=== PATIENT | female | born 1995 | race Caucasian/White ===

== ENCOUNTER 2020-04-21 12:13 | Outpatient (REF) | payer BC, SELFPAY | END 2020-04-21 12:14 | disposition home or self-care (01) | LOC: HO.LAB 12:13 | PROVIDERS: Visit Provider Internal Medicine | DX: Z20.828 Contact with and (suspected) exposure to other viral communicable diseases (principal) | CPT/HCPCS: 87635 ==

== ENCOUNTER 2020-06-18 13:55 | Outpatient (REF) | payer BC, SELFPAY | END 2020-06-18 13:56 | disposition home or self-care (01) | LOC: HO.LAB 13:55 | PROVIDERS: Visit Provider Internal Medicine | DX: Z20.828 Contact with and (suspected) exposure to other viral communicable diseases (principal) | CPT/HCPCS: C9803; U0003 ==

== ENCOUNTER 2020-07-06 10:06 | Outpatient (REF) | payer BC, SELFPAY | END 2020-07-06 10:07 | disposition home or self-care (01) | LOC: HO.LAB 10:06 | PROVIDERS: Visit Provider Internal Medicine | DX: Z20.828 Contact with and (suspected) exposure to other viral communicable diseases (principal) | CPT/HCPCS: C9803; U0003 ==

== ENCOUNTER 2020-08-24 11:10 | Outpatient (REF) | payer BC, SELFPAY | END 2020-08-24 11:11 | disposition home or self-care (01) | LOC: HO.LAB 11:10 | PROVIDERS: Visit Provider Internal Medicine | DX: Z20.822 Contact with and (suspected) exposure to COVID-19 (principal) | CPT/HCPCS: 36415; C9803; U0003; U0005 ==

== ENCOUNTER 2020-09-08 12:16 | Outpatient (REF) | payer BC, SELFPAY | END 2020-09-08 12:17 | disposition home or self-care (01) | LOC: HO.LAB 12:16 | PROVIDERS: Visit Provider Internal Medicine | DX: Z20.822 Contact with and (suspected) exposure to COVID-19 (principal) | CPT/HCPCS: 36415; C9803; U0003; U0005 ==

== ENCOUNTER 2021-04-16 00:18 | Outpatient (REF) | payer BC, SELFPAY ==
[2021-04-16 00:44] LABS: COVID-19 Test Negative (Negative)
== END 2021-04-16 00:19 | disposition home or self-care (01) ==
LOC: HO.LAB 00:18
PROVIDERS: Visit Provider Internal Medicine
DX: Z20.822 Contact with and (suspected) exposure to COVID-19 (principal)
CPT/HCPCS: 36415; 87635

== ENCOUNTER 2021-05-29 06:59 | Outpatient (REF) | payer BC, SELFPAY ==
[2021-05-29 07:49] LABS: COVID-19 Test Negative (Negative)
== END 2021-05-29 07:00 | disposition home or self-care (01) ==
LOC: HO.LAB 06:59
PROVIDERS: Visit Provider Internal Medicine
DX: Z20.822 Contact with and (suspected) exposure to COVID-19 (principal)
CPT/HCPCS: 36415; 87635

== ENCOUNTER 2021-06-28 10:29 | Outpatient (REF) | payer BC, SELFPAY ==
[2021-06-28 11:02] LABS: COVID-19 Test Negative (Negative)
== END 2021-06-28 10:30 | disposition home or self-care (01) ==
LOC: HO.LAB 10:29
PROVIDERS: Visit Provider Internal Medicine
DX: Z20.822 Contact with and (suspected) exposure to COVID-19 (principal)
CPT/HCPCS: 36415; 87635

== ENCOUNTER 2021-07-07 08:46 | Outpatient (REF) | payer BC, SELFPAY ==
[2021-07-07 09:37] LABS: COVID-19 Test Negative (Negative); IDNOW Serial# 9DD0AD1C
== END 2021-07-07 08:47 | disposition home or self-care (01) ==
LOC: HO.LAB 08:46
PROVIDERS: Visit Provider Internal Medicine
DX: Z20.822 Contact with and (suspected) exposure to COVID-19 (principal)
CPT/HCPCS: 36415; 87635

== ENCOUNTER 2021-07-12 14:10 | Outpatient (REF) | payer BC, SELFPAY ==
[2021-07-12 14:51] LABS: IDNOW Serial# 55D5AD1C
[2021-07-12 14:52] LABS: COVID-19 Test Negative (Negative)
== END 2021-07-12 14:11 | disposition home or self-care (01) ==
LOC: HO.LAB 14:10
PROVIDERS: Visit Provider Internal Medicine
DX: Z20.822 Contact with and (suspected) exposure to COVID-19 (principal)
CPT/HCPCS: 36415; 87635

== ENCOUNTER 2021-07-16 17:49 | Outpatient (REF) | payer BC, SELFPAY ==
[2021-07-16 18:35] LABS: COVID-19 Test Negative (Negative)
== END 2021-07-16 17:50 | disposition home or self-care (01) ==
LOC: HO.LAB 17:49
PROVIDERS: Visit Provider Internal Medicine
DX: Z20.822 Contact with and (suspected) exposure to COVID-19 (principal)
CPT/HCPCS: 36415; 87635

== ENCOUNTER 2021-07-22 08:13 | Outpatient (REF) | payer BC, SELFPAY ==
[2021-07-22 08:48] LABS: COVID-19 Test Negative (Negative); IDNOW Serial# 9DD0AD1C
== END 2021-07-22 08:14 | disposition home or self-care (01) ==
LOC: HO.LAB 08:13
PROVIDERS: Visit Provider Internal Medicine
DX: Z20.822 Contact with and (suspected) exposure to COVID-19 (principal)
CPT/HCPCS: 87635

== ENCOUNTER 2021-07-24 09:20 | Outpatient (REF) | payer BC, SELFPAY ==
[2021-07-24 11:43] LABS: COVID-19 Test Negative (Negative); IDNOW Serial# 9DD0AD1C
== END 2021-07-24 09:21 | disposition home or self-care (01) ==
LOC: HO.LAB 09:20
PROVIDERS: Visit Provider Internal Medicine
DX: Z20.822 Contact with and (suspected) exposure to COVID-19 (principal)
CPT/HCPCS: 87635

== ENCOUNTER 2021-10-05 09:52 | Outpatient (REF) | payer BC, SELFPAY ==
[2021-10-05 10:42] LABS: COVID-19 Test Negative (Negative)
== END 2021-10-05 09:53 | disposition home or self-care (01) ==
LOC: HO.LAB 09:52
PROVIDERS: Visit Provider Internal Medicine
DX: Z20.822 Contact with and (suspected) exposure to COVID-19 (principal)
CPT/HCPCS: 87635

== ENCOUNTER 2021-11-10 20:42 | Outpatient (REF) | payer BC, SELFPAY ==
[2021-11-10 21:20] LABS: COVID-19 Test Positive (Negative)
== END 2021-11-10 20:43 | disposition home or self-care (01) ==
LOC: HO.LAB 20:42
PROVIDERS: Visit Provider Internal Medicine
DX: Z20.822 Contact with and (suspected) exposure to COVID-19 (principal)
CPT/HCPCS: 87635

== ENCOUNTER 2021-12-06 15:00 | Outpatient (RCR) | payer BC, SELFPAY | END 2022-01-14 10:25 | disposition home or self-care (01) | LOC: HO.PT 15:00 | PROVIDERS: Visit Provider Orthopaedic Surgery | DX: M25.512 Pain in left shoulder (principal); M75.02 Adhesive capsulitis of left shoulder | CPT/HCPCS: 97110; 97112; 97140; 97161; 97530 ==

== ENCOUNTER 2022-03-17 15:00 | Outpatient (RCR) | payer OTHER, SELFPAY ==
--- NOTE | 2022-02-10 15:09 | MHC.PT.EP ---
[facility] [place] Office [place] Office [place] Office [address] Jaquelin Delacruz [address] [phone] F: [phone] F: [phone] F: [phone] F: [phone] Physical Therapy Plan of Care Date of Evaluation: Date of Surgery: October 2021 Diagnosis: left shoulder SAD sx w/ JR () Assessment: pt is a 26 y/o female presenting to physical therapy w/ referring diagnosis of s/p L SAD in October 2021. Impairments include pain, decreased range of motion, decreased strength, impaired functional mobility, impaired postural awareness, and gait deviations. pt is a good candidate for skilled PT due to age, potential remediation of impairments, typical disease/condition progression and prognosis, comorbidities, and motivation. pt would benefit from tailored strengthening and stretching exercise program, functional training, gait training, postural re-training, neuromuscular re-education, modalities as needed for pain, equipment safety demonstration. Frequency and Duration: The patient will be seen 2x/wk for 6 wks Short Term Goals: pt will be I w/ HEP to promote self-management of condition. pt will improve L shoulder functional IR to at least L3 to promote ease for upper body dressing/washing. Eligibility Consultant Goals: pt will improve L shoulder flexion and abduction and L elbow flexion strength by 1 MMT grade to promote ease in carrying 10#. pt will report a statistically significant improvement in self-reported outcome measure, SPADI, to promote return to PLOF. Treatment Plan: Modalities to reduce pain, spasms and effusion. Manual therapy to restore motion and function. Therapeutic exercise to improve strength and flexibility. Neuromuscular re-education for posture and balance. Therapeutic activities to return to functional activities of daily living. Electronically signed by: Junie Ramírez PT, DPT Please sign and return to therapist. Thank you for your referral.
== END 2022-03-22 14:37 | disposition home or self-care (01) ==
LOC: HO.PT 15:00
PROVIDERS: Visit Provider Physician Assistant
DX: Z98.890 Other specified postprocedural states (principal)
CPT/HCPCS: 97110; 97140; 97161; 97530

== ENCOUNTER 2022-03-21 11:09 | Outpatient (REF) | payer OTHER, SELFPAY ==
[2022-03-21 11:46] LABS: Appearance Urine Cloudy; Color Urine ORANGE; Leukocyte Esterase Urine Moderate (2+) (Negative); Nitrite Urine Positive (Negative); Urine Blood Negative (Negative); Urine Ketones Trace mg/dL (Negative)
[2022-03-21 11:57] LABS: RBC Urine 0-2 /HPF (0-2); UACC Culture Trigger YES; WBC Urine 21-50 /HPF (0-5)
[2022-03-21 11:58] LABS: Bacteria Urine 4+ (None Seen)
[2022-03-21 11:59] LABS: Hyaline Casts Urine 0-2 /LPF (0-2)
== END 2022-03-21 11:10 | disposition home or self-care (01) ==
LOC: HO.LAB 11:09
PROVIDERS: Visit Provider Emergency Medicine
DX: R82.71 Bacteriuria (principal); B96.20 Unspecified Escherichia coli [E. coli] as the cause of diseases classified elsewhere
CPT/HCPCS: 81001; 87086; 87088; 87186

== ENCOUNTER 2022-05-16 15:19 | Outpatient (REF) | payer OTHER, SELFPAY ==
[2022-05-16 15:50] LABS: MANUAL DIFF FLAG NO
[2022-05-16 16:41] LABS: Basophils Absolute Auto 0.1 X10*3/uL (0.0-0.2); Basophils Percent Auto 0.9 % (0-2); Eosinophils Percent Auto 0.7 % (0-4); Hemoglobin 13.4 g/dl (12.0-16.0); Imm Gran Abs Auto 0.01 X10*3/uL (0.00-0.03); Imm Gran Pct Auto 0.2 % (0.0-0.4); Lymphocytes Absolute Auto 2.4 X10*3/uL (1.2-4.9); Lymphocytes Percent Auto 41.4 % (20-40); Mean Corpuscular HGB Conc 31.9 g/dl (31.0-35.0); Mean Corpuscular Hemoglobin 28.6 pg (27.0-33.0); Mean Corpuscular Volume 89.7 fL (80.0-98.0); Mean Platelet Volume 9.4 fL (9.4-12.3); Monocytes Absolute Auto 0.6 X10*3/uL (0.1-1.2); Monocytes Percent Auto 9.7 % (2-11); Neutrophils Absolute Auto 2.7 x10*3/uL (2.0-8.3); Neutrophils Percent Auto 47.1 % (45-73); Platelet Count 336 X10*3/uL (160-400); Red Blood Count 4.68 X10*6/uL (4.20-5.50); Red Cell Distribution Width 13.2 % (11.0-16.0); White Blood Count 5.8 X10*3/uL (4.8-10.8)
[2022-05-16 17:09] LABS: Alanine Aminotransferase 16 U/L (0-31); Albumin Level 4.3 g/dL (3.5-5.0); Alkaline Phosphatase 64 U/L (39-117); Anion Gap 12 (12-20); Aspartate Amino Transferase 20 U/L (5-31); Bilirubin Total < 0.2 mg/dL (0.0-1.0); Blood Urea Nitrogen 14 mg/dL (9-16); Calcium 9.1 mg/dL (8.4-10.2); Carbon Dioxide 24 mmol/L (22-29); Chloride 107 mmol/L (96-108); Estimated Glomerular Filt Rate > 60; Glucose Random 93 mg/dL (60-115); Sodium 139 mmol/L (135-145); Total Protein 7.1 g/dL (6.5-8.0)
[2022-05-16 17:28] LABS: Thyroid Stimulating Hormone 1.11 uIU/mL (0.32-4.0)
[2022-05-17 23:37] LABS: Transglutaminase Ab IgG <1.0 U/mL
[2022-05-18 13:33] LABS: Anti Nuclear Antibody Screen NEGATIVE (NEGATIVE)
[2022-05-18 14:36] LABS: Immunoglobulin A 253 mg/dL (47-310)
[2022-05-19 15:57] LABS: Gliadin Deamidated IgA Ab 2.4 U/mL; Gliadin Deamidated IgG Ab <1.0 U/mL
[2022-05-20 13:51] LABS: Endomysial IgA Antibody Negative (Negative)
== END 2022-05-16 15:20 | disposition home or self-care (01) ==
LOC: HO.LAB 15:19
PROVIDERS: PCP Internal Medicine; Visit Provider Internal Medicine
DX: R23.2 Flushing (principal); I73.00 Raynaud's syndrome without gangrene; R21 Rash and other nonspecific skin eruption
CPT/HCPCS: 36415; 80053; 82784; 83520; 84443; 85025; 86038; 86039; 86231; 86258; 86364

== ENCOUNTER 2022-05-24 13:18 | Outpatient (REF) | payer OTHER, SELFPAY ==
[2022-06-01 18:11] LABS: Hydroindolacetic Acid,5- 2.8 mg/24 h (< OR = 6.0); Total Volume 1225 mL
[2022-06-08 08:06] LABS: Creatinine, 24U 1.14; Vanillymandelic Acid 2.6
[2022-06-08 08:07] LABS: Total Volume 1225
== END 2022-05-24 13:19 | disposition home or self-care (01) ==
LOC: HO.LNP 13:18
PROVIDERS: Visit Provider Internal Medicine
DX: I73.00 Raynaud's syndrome without gangrene (principal)
CPT/HCPCS: 81050; 83497; 84585

== ENCOUNTER 2022-08-30 08:10 | Outpatient (REF) | payer OTHER, SELFPAY ==
[2022-08-30 09:05] LABS: COVID-19 Test Negative (Negative); IDNOW Serial# 9DB6401D
== END 2022-08-30 08:11 | disposition home or self-care (01) ==
LOC: HO.LAB 08:10
PROVIDERS: Visit Provider Internal Medicine
DX: Z20.822 Contact with and (suspected) exposure to COVID-19 (principal)
CPT/HCPCS: 87635

== ENCOUNTER 2022-10-01 13:06 | Emergency (ER) | payer OTHER, SELFPAY ==
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
[2022-10-01 13:10] VITALS: BP 118/88; PULSE 99; O2SAT 99
[2022-10-01 13:12] VITALS: BP 106/60; PULSE 93; RESP 18; TEMP 36.9; O2SAT 100; BMI 26.6
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
[2022-10-01] MEDS: Ibuprofen 600 MG TABLET PO (14:12)
[2022-10-01 14:14] LABS: Appearance Urine Clear; Color Urine Yellow; Glucose Urine UA Negative (Negative); Leukocyte Esterase Urine Negative (Negative); Nitrite Urine Negative (Negative); Specific Gravity - Urine 1.025 (1.005-1.025); UMIC TRIGGER UACC YES; Urine Blood Trace (Negative); Urine Ketones Trace mg/dL (Negative); Urine Protein Negative (Neg-Trace)
[2022-10-01 14:15] LABS: UPreg QC Valid YES; Urine Pregnancy NEGATIVE (NEGATIVE)
[2022-10-01 14:17] LABS: Bacteria Urine Trace (None Seen); Hyaline Casts Urine 0-2 /LPF (0-2); WBC Urine 0-5 /HPF (0-5)
== END 2022-10-01 16:00 | disposition home or self-care (01) ==
PROVIDERS: Emergency Provider Emergency Medicine; PCP Internal Medicine
DX: S00.83XA Contusion of other part of head, initial encounter (principal); T20.16XA Burn of first degree of forehead and cheek, initial encounter; V43.52XA Car driver injured in collision with other type car in traffic accident, initial encounter; W22.11XA Striking against or struck by driver side automobile airbag, initial encounter; Y93.89 Activity, other specified; Y92.414 Local residential or business street as the place of occurrence of the external cause; Y99.9 Unspecified external cause status
CPT/HCPCS: 70450; 71045; 73110; 73130; 73502; 81001; 81025; 99284

== ENCOUNTER 2023-06-28 07:50 | Outpatient (REF) | payer OTHER, SELFPAY ==
--- NOTE | ~2023-06-28 | FL_ITS ---
EXAMINATION: XR FLUOROSCOPY UPPER GI WITH AIR CLINICAL INFORMATION: Dysphasia, reflux COMPARISON: None TECHNIQUE: Fluoroscopic air contrast upper GI examination was performed utilizing standard techniques with thin and thick barium and effervescent granules. Numerous spot images were obtained. FINDINGS: Lateral cine images of the oropharynx and hypopharynx demonstrate normal swallow mechanism with normal epiglottic inversion and soft palate elevation. No tracheal penetration, glottic or subglottic aspiration identified. No nasopharyngeal reflux present. Hypopharyngeal structures appear normal without evidence of mass or diverticulum. There was no significant cricopharyngeal achalasia. Dual and single contrast images of the esophagus demonstrate normal caliber, contour, and mucosal pattern. No evidence of stricture, mass, or ulcerations identified. Esophageal peristalsis was normal. A small type I hiatal hernia is present. No significant gastroesophageal reflux was seen during the course of the examination and on reflux views. Dual contrast and single contrast images of the stomach demonstrate persistent small foci of contrast pooling in the most distal antrum, best appreciated RF series 9, image 45 of 57. Peptic ulceration is suspected. Otherwise, the stomach demonstrates normal contour and mucosal pattern without evidence of mass, additional ulceration, or other abnormality. Contrast freely passed into the gastric antrum and duodenal bulb without delay. Single and air-contrast images of the duodenal bulb demonstrate no abnormality. The duodenal sweep has a normal appearance, course, and mucosal fold appearance. The imaged proximal jejunum has a normal fold pattern and caliber. FLUOROSCOPY TIME: 3 minutes 6 seconds Number of Spot Images: 8 Number of Cine: 10 DOSE AREA PRODUCT: 1603 uGy-m2 (microgray-meter squared) FL/FL barium swallow IMPRESSION: 1. Subtle foci of contrast pooling in the distal antrum suggestive of possible peptic ulceration or ulcerations. 2. Small type I hiatus hernia. No definite gastroesophageal reflux identified during the course of the study. This procedure was performed by Mane Rockwell PA-C, and supervised by Dr. Alexis
== END 2023-06-28 07:51 | disposition home or self-care (01) ==
LOC: HO.XRAY 07:50
PROVIDERS: Visit Provider Otolaryngology
DX: R13.10 Dysphagia, unspecified (principal); K21.9 Gastro-esophageal reflux disease without esophagitis
CPT/HCPCS: 74220

== ENCOUNTER → 2023-06-28 07:51 | Outpatient (BNV) | payer OTHER, SELFPAY | PROVIDERS: Visit Provider Radiology Diagnostic Radiology | DX: R13.10 Dysphagia, unspecified (principal); K21.9 Gastro-esophageal reflux disease without esophagitis | CPT/HCPCS: 74246 ==

== ENCOUNTER 2023-09-12 12:35 | Outpatient (REF) | payer OTHER, SELFPAY ==
[2023-09-12 13:11] LABS: IDNOW Serial# 08D9AD1C; Strep A Nucleic Acid Negative (Negative)
== END 2023-09-12 12:36 | disposition home or self-care (01) ==
LOC: HO.LAB 12:35
PROVIDERS: Visit Provider Physician Assistant
DX: J02.9 Acute pharyngitis, unspecified (principal)
CPT/HCPCS: 87651

== ENCOUNTER 2023-09-14 07:51 | Emergency (ER) | payer OTHER, SELFPAY ==
[2023-09-14 07:56] VITALS: BP 116/78; PULSE 125; RESP 18; TEMP 36.4; O2SAT 98; BMI 27.6
--- NOTE | 2023-09-14 08:17 | ED_ITS ---
HPI - URI/Sore Throat General Chief Complaint: General Medical Stated Complaint: Sore Throat Sweats Time Seen by Provider: 09/14/23 08:02 Source: patient Mode of arrival: ambulatory Limitations: no limitations History of Present Illness HPI Narrative: 27 yo female with PMH of POTS here with c/o worsening sore throat since Monday with intermittent fevers and difficulty swallowing. She did have a negative outpatient strep test on 09/12. She has never had anything like this before. It hurts to swallow. She can move her neck. MD elicited complaint: sore throat Onset (ago): day(s) (Monday) Consistency: progressively worsening Severity: severe Description of mucous: clear Able to tolerate fluids by mouth: Yes Exacerbating factors: swallowing Relieving factors: nothing Associated symptoms: fever, chills, voice changes and sore throat Treatments prior to arrival: acetaminophen Related Data Previous Rx's Medication Instructions Recorded amoxicillin 875 mg-potassium 1 tab PO BID #20 tabs 09/14/23 clavulanate 125 mg tablet Allergies Allergy/AdvReac Type Severity Reaction Status Date / Time sumatriptan [SUMATRIPTAN] Allergy Unknown UNKNOWN Verified 09/14/23 07:55 Review of Systems 2 Review of Systems: Constitutional : pos Fever, pos Chills, No Fatigue ENT/Mouth : pos sore throat, No Rhinorrhea Eyes: No Eye Pain, No Swelling, No Redness Cardiovascular : No Chest Pain, No SOB, No Dyspnea on Exertion Respiratory : No Cough, No Sputum Gastrointestinal : No Nausea, No Vomiting, No Diarrhea, No abdominal Pain Genitourinary : No Dysuria, No Urinary Frequency, No Hematuria, Musculoskeletal : No joint pain, No Myalgias, No Joint Swelling Skin : No Skin Lesions, No rash Neuro : No Weakness, No Numbness, No Dizziness, positive Headache Psych : No Anxiety/Panic, No Depression All other systems reviewed and are negative [facility] Past Medical History Attestation statement: The following information was validated with the patient. Source: old records reviewed Medical History No pertinent past medical history Social History Social History Patient Tobacco Use Status: Never used Tobacco Advance Directives: No Advance Directives Information Provided: No Patient : No Physical Exam 2 Vital Signs: Vital Signs: Last Vital Signs Temp 97.9 F 09/14/23 10:00 Pulse 94 09/14/23 10:00 Resp 16 09/14/23 10:00 BP 111/70 09/14/23 10:00 Pulse Ox 99 09/14/23 10:00 O2 Del Method Room Air 09/14/23 10:00 BMI result Body Mass Index 27.6 Appearance: Alert. Oriented X3. No acute distress. Eyes: Pupils equal, round and reactive to light. ENT: Pharynx handling secretions bilateral moderate tonsilar swelling with exudates and patches. uvula is midline normal ROM of neck Neck: Normal inspection. bilateral anterior cervical lymphadenopathy CVS: Normal heart rate and rhythm. Pulses normal. Respiratory: No respiratory distress. Breath sounds normal. Abdomen: Soft and nontender. Skin: Skin warm and dry. Normal skin color. Normal skin turgor. Extremities: No lower extremity edema. No calf ttp Neuro: Oriented X 3. No motor deficit. No sensory deficit. Medications Administered Discontinued Medications Generic Name Dose Route Start Last Admin Trade Name Nickq PRN Reason Stop Dose Admin Dexamethasone Sodium Phosphate 6 mg 09/14/23 08:12 09/14/23 08:43 Dexamethasone Sod Phosphate 4 Mg/Ml Vial IVPUSH 09/14/23 08:13 6 mg ONCE ONE Administration Sodium Chloride 1,000 mls @ 999 mls/hr 09/14/23 08:15 09/14/23 11:25 Ns IV 09/14/23 09:15 Infused .Q1H1M DERICK Infusion Piperacillin Sod/Tazobactam 50 mls @ 100 mls/hr 09/14/23 08:12 09/14/23 11:25 Sod 3.375 gm/ Sodium Chloride IV 09/14/23 08:41 Infused ONCE ONE Infusion Ketorolac Tromethamine 15 mg 09/14/23 08:12 09/14/23 08:43 Ketorolac Tromethamine 15 Mg/Ml Vial IVPUSH 09/14/23 08:13 15 mg ONCE ONE Administration Medical Decision Making Medical Decision Making [facility] Narrative: 27 yo female with hx of POTS now with worsening sore throat and exam appears bacterial - uvula is midline, she is tolerating secretions no signs of ROBOTIC WELDER or abscess at this time will give IVF, toradol, steroids and start empirically on IV antibiotics. swabs, strep and mono ordered. Differential Diagnosis Differential Diagnoses: The differential diagnosis associated with the presentation includes mono, strep, pharyngitis Admission/Observation Consideration of admission/observation: Escalation of care including admission/observation considered feels much better stable for DC Lab Data MDM Lab Attestation statement: I reviewed the patient's lab results. 09/14/23 08:38 09/14/23 09:07 Labs: Lab Results 09/14/23 09/14/23 09/14/23 Range/Units 08:38 09:07 10:45 WBC 4.5 L (4.8-10.8) X10*3/uL RBC 4.61 (4.20-5.50) X10*6/uL Hgb 13.1 (12.0-16.0) g/dl Hct 39.6 (37.0-47.0) % MCV 85.9 (80.0-98.0) fL MCH 28.4 (27.0-33.0) pg MCHC 33.1 (31.0-35.0) g/dl RDW 13.8 (11.0-16.0) % Plt Count 197 D (160-400) X10*3/uL MPV 9.9 (9.4-12.3) fL Immature Gran % (Auto) 0.2 (0.0-0.4) % Neut % (Auto) 61.2 (45-73) % Lymph % (Auto) 27.8 (20-40) % Clayton % (Auto) 9.7 (2-11) % Eos % (Auto) 0.9 (0-4) % Baso % (Auto) 0.2 (0-2) % Lymph # (Auto) 1.3 (1.2-4.9) X10*3/uL Clayton # (Auto) 0.4 (0.1-1.2) X10*3/uL Eos # (Auto) 0.0 (0.0-0.4) X10*3/uL Baso # (Auto) 0.0 (0.0-0.2) X10*3/uL Abs Immat Gran (auto) 0.01 (0.00-0.03) X10*3/uL Absolute Neuts (auto) 2.8 (2.0-8.3) x10*3/uL Absolute Nucleated RBC 0.000 (0.0-0.012) X10*3/uL Nucleated RBC % (auto) 0.0 (0.0-0.2) /100WBC Sodium 138 (135-145) mmol/L Potassium 4.0 (3.3-5.1) mmol/L Chloride 110 H (96-108) mmol/L Carbon Dioxide 20 L (22-29) mmol/L Anion Gap 12 (12-20) BUN 11 (9-16) mg/dL Creatinine 0.92 (0.5-1.4) mg/dL Estim Creat Clear Calc 89.9 Estimated GFR > 60 Random Glucose 79 (60-115) mg/dL Lactic Acid 0.9 (0.5-2.0) mmol/L Calcium 8.6 (8.4-10.2) mg/dL Beta HCG, Quant < 2 mIU/mL Monoscreen Negative (Negative) Influenza Type A (PCR) NEGATIVE (Negative) Influenza Type B (PCR) NEGATIVE (Negative) RSV RNA Qual (PCR) NEGATIVE (Negative) SARS-CoV-2 RNA (RT-PCR) NEGATIVE (Negative) S. pyogenes GrpA MICHELLE Negative (Negative) External Record Review External record reviewed: Outpatient record and Prior outpatient labs Prescription Management I considered prescription management with: Antibiotic Discharge Plan Discharge Clinical Impression: Pharyngitis Qualifiers: Pharyngitis/tonsillitis etiology: unspecified etiology Qualified Code(s): J02.9 - Acute pharyngitis, unspecified Patient Disposition: Home, Self-Care Instructions: Pharyngitis (ED) Additional Instructions: negative strep covid and flu mono negative finish all antibiotics return for worsening symptoms, inability to swallow or drink or any other concerns On amoxicillin-clavulanate, softer bowel movements are to be expected. Call your provider if you move your bowels more than 4 times a day, your bowel movements are almost all liquid, or you get a rash.? Prescriptions: New amoxicillin-pot clavulanate 875-125 mg tablet 1 tab PO BID Qty: 20 0RF Stand Alone Forms: Work/School Release
[2023-09-14] MEDS: 0.9 % Sodium Chloride 1,000 ML 999 ML IV (08:42)
[2023-09-14] MEDS: Ketorolac Tromethamine 15 MG/ML VIAL IVPUSH (08:43)
[2023-09-14] MEDS: dexAMETHasone sod phosphate 4 MG/ML VIAL 6 MG IVPUSH (08:43)
[2023-09-14 08:46] LABS: MANUAL DIFF FLAG NO
[2023-09-14 08:47] LABS: Basophils Percent Auto 0.2 % (0-2); Eosinophils Percent Auto 0.9 % (0-4); Hematocrit 39.6 % (37.0-47.0); Hemoglobin 13.1 g/dl (12.0-16.0); Imm Gran Abs Auto 0.01 X10*3/uL (0.00-0.03); Imm Gran Pct Auto 0.2 % (0.0-0.4); Lymphocytes Absolute Auto 1.3 X10*3/uL (1.2-4.9); Lymphocytes Percent Auto 27.8 % (20-40); Mean Corpuscular HGB Conc 33.1 g/dl (31.0-35.0); Mean Corpuscular Hemoglobin 28.4 pg (27.0-33.0); Mean Corpuscular Volume 85.9 fL (80.0-98.0); Mean Platelet Volume 9.9 fL (9.4-12.3); Monocytes Absolute Auto 0.4 X10*3/uL (0.1-1.2); Monocytes Percent Auto 9.7 % (2-11); Neutrophils Absolute Auto 2.8 x10*3/uL (2.0-8.3); Neutrophils Percent Auto 61.2 % (45-73); Platelet Count 197 X10*3/uL (160-400); Red Blood Count 4.61 X10*6/uL (4.20-5.50); Red Cell Distribution Width 13.8 % (11.0-16.0); White Blood Count 4.5 X10*3/uL (4.8-10.8)
[2023-09-14 08:57] VITALS: BP 107/70; PULSE 92; RESP 20; TEMP 36.8; O2SAT 97
[2023-09-14 08:58] LABS: Lactic Acid 0.9 mmol/L (0.5-2.0)
[2023-09-14 09:11] LABS: IDNOW Serial# 58CA691E; Strep A Nucleic Acid Negative (Negative)
[2023-09-14] MEDS: Piperacillin Sodium/Tazobactam 3.375 GM in 0.9 % Sodium Chloride 50 ML IV (09:15)
--- NOTE | 2023-09-14 09:19 | PC.NURSE ---
Pt in room assessed by . Pt c/o worsening sore throat. Throat appears red with white spots. Labs completed, IV placed #20 R-AC. Medications and administered per orders. Abx delayed d/t getting 2nd set of blood cultures. Pt pain initially at 8/10 in thrat. After medication pain has improved to 5/10. Pt in bed resting. Fluids and abx running at this time. call erickson within reach. Plan of care ongoing.
[2023-09-14 09:37] LABS: Anion Gap 12 (12-20); Blood Urea Nitrogen 11 mg/dL (9-16); Calcium 8.6 mg/dL (8.4-10.2); Carbon Dioxide 20 mmol/L (22-29); Chloride 110 mmol/L (96-108); Creatinine Clr Calc Pharmacy 89.9; Estimated Glomerular Filt Rate > 60; Glucose Random 79 mg/dL (60-115); HCG Quantitative < 2 mIU/mL; Sodium 138 mmol/L (135-145)
[2023-09-14 09:51] LABS: Influenza A PCR NEGATIVE (Negative); Influenza B PCR NEGATIVE (Negative); Resp Syncy Virus RNA Qual PCR NEGATIVE (Negative); SARS COV2 PCR INHOUSE NEGATIVE (Negative)
[2023-09-14 10:00] VITALS: BP 111/70; PULSE 94; RESP 16; TEMP 36.6; O2SAT 99
[2023-09-14 11:28] LABS: Monotest Negative (Negative)
--- NOTE | 2023-09-14 11:47 | PC.NURSE ---
assumed care of pt at 1100, pt denies any pain at this time, IV removed, plan for discharge.
== END 2023-09-14 11:47 | disposition home or self-care (01) ==
PROVIDERS: Emergency Provider Emergency Medicine; PCP Hospitalist
DX: J02.9 Acute pharyngitis, unspecified (principal); R13.10 Dysphagia, unspecified; R61 Generalized hyperhidrosis; Z11.52 Encounter for screening for COVID-19; Z20.822 Contact with and (suspected) exposure to COVID-19; Z79.899 Other long term (current) drug therapy
CPT/HCPCS: 0241U; 36415; 80048; 83605; 84702; 85025; 86308; 87040; 87651; 96361; 96374; 96375; 99284; J1100; J1885; J2543

== ENCOUNTER 2023-11-11 14:24 | Emergency (ER) | payer OTHER, SELFPAY ==
--- NOTE | 2023-11-11 14:29 | ED_ITS ---
HPI - General Adult General Chief complaint: Skin/Abscess/Foreign Body Stated complaint: allergic reaction ? Time Seen by Provider: 11/11/23 14:51 Source: patient Mode of arrival: ambulatory Limitations: no limitations History of Present Illness HPI narrative: Patient is a 27 year old assigned female at with no reported medical history presenting to the emergency department today with a facial rash. Patient states that last night she began to have a burning facial rash. 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 Patient denies any dizziness, lightheadedness, abdominal pain, nausea, vomiting, fever, chills, blurry vision, double vision, loss of vision, chest pain, difficulty breathing, shortness of breath, back pain, night sweats, pain with urination, increased urinary frequency, increased urinary urgency, blood in her urine or stool, syncope or a near syncopal episode, recent trauma or falls, bowel incontinence, bladder incontinence, bowel retention, bladder retention, or any other complaints at this time. Onset (ago): day(s) (1) Location: face Severity: mild Severity scale (1-10): 3 Quality: burning Pain Consistency: constant Relieving factors: none Exacerbating factors: none Associated symptoms: rash Treatments prior to arrival: none Related Data Previous Rx's ?Medication ?Instructions ?Recorded amoxicillin 875 mg-potassium 1 tab PO BID #20 tabs 09/14/23 clavulanate 125 mg tablet prednisone 20 mg tablet 20 mg PO DAILY 7 days #7 tabs 11/11/23 Allergies Allergy/AdvReac Type Severity Reaction Status Date / Time sumatriptan [SUMATRIPTAN] Allergy Unknown UNKNOWN Verified 11/11/23 14:32 Review of Systems 2 Constitutional: Constitutional: Reports no additional constitutional complaints, Denies chills, Denies fever(s) and Denies night sweats Eyes: Eyes: Reports no additional eye complaints, Denies blurry vision, Denies change in vision, Denies diplopia, Denies eye discharge, Denies loss of vision and Denies eye pain ENT: Denies dizziness Cardiovascular: Cardiovascular: Reports no additional cardiovascular complaints, Denies chest pain, Denies lightheadedness, Denies Loss of Consciousness and Denies dyspnea Respiratory: Respiratory: Reports no additional respiratory complaints and Denies dyspnea Gastrointestinal: Gastrointestinal: Reports no additional gastrointestinal complaints, Denies abdominal pain, Denies melena, Denies hematochezia, Denies change in bowel habits and Denies change in stool character Genitourinary: Genitourinary: Denies hematuria, Denies urinary frequency, Denies dysuria, Denies urinary incontinence, Denies urinary hesitancy and Denies urinary urgency Musculoskeletal: Musculoskeletal: Reports no additional musculoskeletal complaints, Denies numbness and Denies tingling Integumentary/Breasts: Comments: facial rash Neurologic: Denies dizziness, Denies loss of vision, Denies numbness and Denies tingling Psychiatric: Psychiatric: Reports no additional psychiatric complaints Endocrine: Endocrine: Reports no additional endocrine complaints Hematologic/Lymphatic: Hematologic/Lymphatic: Reports no additional hematologic/lymphatic complaints Allergic/Immunologic: Allergic/Immunologic: Reports no additional allergic/immunologic complaints PMFSH Past Medical History Attestation statement: The following information was validated with the patient. Source: old records reviewed and nursing notes reviewed Medical History No pertinent past medical history Social History Social History Patient Tobacco Use Status: Never used Tobacco Advance Directives: No Advance Directives Information Provided: No Do you have a plan to hurt others: No Plan Physical Exam ED Vital Signs: Vital Signs - 24 hr 11/11/23 14:30 11/11/23 15:48 Temperature 97.9 F 97.9 F Pulse Rate 99 99 Respiratory Rate 18 18 Blood Pressure 121/64 121/64 Pulse Oximetry 100 100 Oxygen Delivery Method Room Air Room Air BMI result Body Mass Index 27.5 Const General: cooperative, no acute distress, alert and awake Nutritional Appearance: well nourished Orientation/consciousness: patient oriented x3 Limitations: no limitations HENMT Head: Yes normal to inspection and Yes atraumatic Ears: hearing grossly normal bilaterally and external ears normal General nose exam: Normal external nose present, no nasal discharge noted and no epistaxis Mouth: Normal oral and palatal mucosa present, no drooling and no muffled voice Eyes General: appearance normal, both eyes and all related structures Periorbital: periorbital findings normal Eyelids: Yes eyelids normal Conjunctivae: conjunctivae normal Pupils: Equal, round and reactive pupils present EOM: EOMs intact bilaterally Neck Neck: Yes normal visual inspection, Yes full ROM and Yes no lymphadenopathy Chest Chest palpation & inspection: normal inspection of the chest Resp Effort & Inspection: normal respiratory effort and able to speak in complete sentences GI Inspection: Yes normal to inspection Skin Other: erythematous rash present to the face - consistent with a doxycycline sun rash Neuro General: patient oriented x3 and moves all extremities Cranial nerves: Yes Equal, round and reactive pupils present Cognition (Neuro): normal cognition Motor exam (neuro): 5/5 motor strength present throughout Sensory Exam: Normal double simultaneous stimulation for sensation Coordination: [id number] test normal Extrem General: Yes normal to inspection, Yes full ROM and Yes capillary refill normal Psych Appearance: grossly normal Mental Status: mental status grossly normal Affect: normal affect Attitude: cooperative Thought process: Normal thought process present Thought content: Normal thought content present Insight: Good insight present (Psych) Course Course Course Narrative: RME performed by Zahraa Moore PA-C. Patient is a 27 year old assigned female at presenting to the emergency department with a skin reaction. Patient states that last night she suddenly got a bright red face and it began to feel as though it was burning. Patient states that she is on doxycycline and she went for a walk outside yesterday. Detailed physical exam and review of systems are deferred to the import manager. Labs ordered. Patient placed back in the waiting room pending room availability and results. Medical Decision Making Medical Decision Making [facility] Narrative: Patient is a 27 year old assigned female at with no reported medical history presenting to the emergency department today with a facial rash / burning. Patient's physical exam was was noted in the physical exam portion of this note. Patient's blood work was unremarkable. Patient's clinical presentation is most consistent with a doxycycline sun rash. I explained my physical exam findings as well as all test results to the patient. I answered all questions asked by the patient. I stressed the importance of the patient taking her medication as prescribed and stopping her doxycycline. I stressed the importance of the patient following up with her primary care provider and her social media editor. I stressed the importance of the patient returning to the emergency department immediately if her symptoms were to worsen or if she were to develop any dizziness, shortness of breath, difficulty breathing, chest pain, blurry vision, loss of vision, nausea, vomiting, abdominal pain, fever, chills, back pain, or any other complaints. Patient verbalized agreement and understanding with this treatment plan and discharge. Differential Diagnosis Differential Diagnoses: The differential diagnosis associated with the presentation includes Doxycycline adverse reaction Doxycycline sun reaction Admission/Observation Consideration of admission/observation: Escalation of care including admission/observation considered Patient would have been admitted to the hospital had her work up had any findings where hospital admission was appropriate and her clinical presentation warranted hospital admission. Lab Data [facility] Lab Attestation statement: I reviewed the patient's lab results. My interpretation of these results are in the [facility] Rationale portion of this note. 11/11/23 14:46 11/11/23 14:46 Labs: Lab Results 11/11/23 Range/Units 14:46 WBC 6.8 (4.8-10.8) X10*3/uL RBC 4.42 (4.20-5.50) X10*6/uL Hgb 12.9 (12.0-16.0) g/dl Hct 39.4 (37.0-47.0) % MCV 89.1 (80.0-98.0) fL MCH 29.2 (27.0-33.0) pg MCHC 32.7 (31.0-35.0) g/dl RDW 14.2 (11.0-16.0) % Plt Count 255 D (160-400) X10*3/uL MPV 9.4 (9.4-12.3) fL Immature Gran % (Auto) 0.4 (0.0-0.4) % Neut % (Auto) 60.6 (45-73) % Lymph % (Auto) 30.5 (20-40) % Burnet % (Auto) 7.9 (2-11) % Eos % (Auto) 0.3 (0-4) % Baso % (Auto) 0.3 (0-2) % Lymph # (Auto) 2.1 (1.2-4.9) X10*3/uL Burnet # (Auto) 0.5 (0.1-1.2) X10*3/uL Eos # (Auto) 0.0 (0.0-0.4) X10*3/uL Baso # (Auto) 0.0 (0.0-0.2) X10*3/uL Abs Immat Gran (auto) 0.03 (0.00-0.03) X10*3/uL Absolute Neuts (auto) 4.1 (2.0-8.3) x10*3/uL Absolute Nucleated RBC 0.000 (0.0-0.012) X10*3/uL Nucleated RBC % (auto) 0.0 (0.0-0.2) /100WBC ESR 6 (0-20) MM/HR Sodium 140 (135-145) mmol/L Potassium 3.8 (3.3-5.1) mmol/L Chloride 111 H (96-108) mmol/L Carbon Dioxide 20 L (22-29) mmol/L Anion Gap 13 (12-20) BUN 15 (9-16) mg/dL Creatinine 0.86 (0.5-1.4) mg/dL Estim Creat Clear Calc 95.9 Estimated GFR > 60 Random Glucose 87 (60-115) mg/dL Calcium 8.8 (8.4-10.2) mg/dL Magnesium 2.1 (1.6-2.6) mg/dL Total Bilirubin 0.2 (0.0-1.0) mg/dL AST 20 (5-31) U/L ALT 18 (0-31) U/L Alkaline Phosphatase 73 (39-117) U/L C-Reactive Protein 0.12 (< or = 0.50) mg/dL Total Protein 7.0 (6.5-8.0) g/dL Albumin 3.9 (3.5-5.0) g/dL Beta HCG, Quant < 2 mIU/mL Discharge Plan Discharge Clinical Impression: Adverse effect of doxycycline Patient Disposition: Home, Self-Care Instructions: Adverse Drug Reaction (ED) Additional Instructions: Stop taking the Doxycycline, immediately. Avoid direct sunlight for at least 1 week. Follow up with your primary care provider and your social media editor. Return to the emergency department immediately if your symptoms worsen or if you develop any dizziness, shortness of breath, difficulty breathing, chest pain, blurry vision, loss of vision, nausea, vomiting, abdominal pain, fever, chills, back pain, or any other complaints. Prescriptions: New prednisone 20 mg tablet 20 mg PO DAILY 7 Days Qty: 7 0RF No Action amoxicillin-pot clavulanate 875-125 mg tablet 1 tab PO BID Qty: 20 0RF Referrals: Rastegar,Shiva, DO [Primary Care Provider] - Interventions: ED Discharge Assessment Last Done: 11/11/23 15:48 Discharge Date/Time: 11/11/23 15:50 Print Language: Icelandic
[2023-11-11 14:30] VITALS: BP 121/64; PULSE 99; RESP 18; TEMP 36.6; O2SAT 100; BMI 27.5
--- OUTSIDE RECORDS SUMMARY | 2023-11-11 14:40 | XMS_ITS | Continuity of Care Document ---
Author Organization [facility] Address [address] [address]- Care Team Providers Care Chemical Production Machine Operator Name Role Phone Lino Castano MD Primary Care Physician [place] [facility] [place](s): 01/03/23 - 02/02/23 [facility] [address] [address]- Allergies, Adverse Reactions, Alerts No Known Allergies Medications amiTRIPTYLINE By Mouth, 0 Refills, Maintenance, 05/25/20 11:17:00 EST Start Date: 05/25/20 Status: Ordered oxyCODONE 5 mg oral tablet 5 mg, 1, tablet, By Mouth, every 4-6 hours as needed for pain, Refills 0, Tot. Refills 0, Maintenance, 10/19/21 8:46:00 EDT, Partial fill upon patient request if the prescription is for a schedule IIopioid drug. Start Date: 10/19/21 Status: Ordered propranolol 60 mg oral tablet TAKE 1 TABLET TWICE A DAY Start Date: 10/19/21 Status: Ordered Topamax 25 mg oral tablet By Mouth, 0 Refills, Maintenance, 05/25/20 11:16:00 EST Start Date: 05/25/20 Status: Ordered Social History Social History Type Response Smoking Status Never (less than 100 in lifetime) entered on: 01/06/21 Sex Patient Care team information Care Team Personnel Name: Lino Castano MD Position: Reference Physician Member Role: PCP Address: Address: [address] [place] [address] [address] [place] [address]- Care Team Related Persons Name: ERIKA COWAN Address: home [address] [place] [address]
--- OUTSIDE RECORDS SUMMARY | 2023-11-11 14:40 | XMS_ITS | Continuity of Care Document ---
Author Organization [facility] Address [address] [address]- Care Team Providers Care Driver Engineer Name Role Phone Lino Castano MD Primary Care Physician [place] [facility] [id number] Date(s): 04/07/23 - 04/14/23 [facility] [address] [address]- Attending Physician: Elvi Coleman MD Admitting Physician: Elvi Coleman MD Referring Physician: Elvi Coleman MD Allergies, Adverse Reactions, Alerts No Known Allergies [...] 11:16:00 EST Start Date: 05/25/20 Status: Ordered traZODone 50 mg oral tablet 50 mg, 1, tablet, By Mouth, Daily at bedtime, # 90 tablet, Refills 0, Maintenance, 03/27/23 8:09:00EDT, Partial fill upon patient request if the prescription is for a schedule II opioid drug. Start Date: 03/27/23 Status: Ordered Vitamin B12 0 Refills, Maintenance, 03/27/23 8:09:00 EDT, Partial fill upon patient request if the prescriptionis for a schedule II opioid drug. Start Date: 03/27/23 Status: Ordered Social History Social History Type Response Smoking Status Never (less than 100 in lifetime) entered on: 01/06/21 Sex US Heart * Event Display: Echocardiogram - Complete * Event Display: Echocardiogram - Complete Authored Date: [id number] Transthoracic Echocardiography Report (TTE) Patient Demographics Patient Name MINA COWAN Date of Study 04/07/2023 Corporate Gender Female Facility Race Unknown Ethnicity Date of 1995 Height: 64 inches Age 27 year(s) Weight: 136.69 pounds Accession Number [id number] BSA: 1.66 m2 Room Number BMI: 23.46 kg/m2 Referring Physician Jared MARTINEZ,Elvi Interpreting Physician Jamel Lora MD Diesel Engine Operator Timoteo Vanessa Indications Dizziness or presyncope. Clinical History Asthma. Study Data Type of Study TTE procedure:Echo Complete-Doppler, Colorflow, M-Mode. Study Date04/07/2023 Start Time: 01:28 PM Study Location: [facility] Echo Study Status: Echo lab Patient Status: Routine Technical Quality: Fair due to body habitus. EKG: Sinus tachycardia HR: 96 bpm 2D Measurements LV Diastolic Dimension: 4.6 cm LV Systolic Dimension: 2.8 cm LV Septum Diastolic: 0.7 cm LV PW Diastolic: 0.7 cm AO Root Dimension: 2.5 cm LA Dimension: 3.4 cm LA ESV (BP):27.2 ml LVOT Stroke Volume: 75.05 ml LA ESV Index: 16 ml/m2 Stroke Volume Index45.21 ml/m2 LVOT: 2 cm Cardiac Index:4.34 l/min/m2 Ascending Aorta:2.5 cm Doppler Measurements AV Peak Velocity: 176 cm/s MV Peak E-Wave: 105 cm/s AV Peak Gradient: 12.39 mmHg MV Peak A-Wave: 94.6 cm/s AV Mean Gradient: 6 mmHg MV E/A Ratio: 1.11 AV VTI:29.9 cm MV P1/2t: 43 msec LVOT Peak Velocity: 147 cm/s LVOT VTI23.9 cm MV Deceleration Time: 147 msec AV Area (Continuity):2.51 cm2 MV Area (PHT): 5.12 cm2 Estimated RAP:3 mmHg E' Septal Velocity: 15.1 cm/s E' Lateral Velocity: 19 cm/s E/Med E':[id number] E/Lat E':5.096503 Cardiac Anatomy Left Ventricle/Interventricular Septum The left ventricle is normal in size, wall thickness and systolic function. The ejection fraction is 60-65%. No regional wall motion abnormalities seen. Normal diastolic function. Left Atrium/Interatrial Septum The left atrium is normal in size. Aortic Valve The aortic valve is trileaflet and normal in structure and function. There is no aortic stenosis or insufficiency. Mitral Valve The mitral valve is normal in structure and function. There is no mitral stenosis or insufficiency. Aorta The ascending aorta and aortic root are normal in size. There is no Doppler evidence of coarctation of the aorta. Right Ventricle The right ventricle is normal in size and function. Right Atrium The right atrium is normal in size. Pulmonic Valve The pulmonic valve is poorly visualized. There is no significant pulmonic regurgitation. Tricuspid Valve The tricuspid valve leaflet opening is normal. There is trace tricuspid valve regurgitation. Pumonary Artery An accurate pulmonary artery pressure could not be obtained. Venous Structures There is normal pulmonary venous flow. The inferior vena cava size is normal with normal inspiratory collapse. The central venous pressure estimation is 3 mmHg. Pericardium/Extracardiac There is no significant pericardial effusion. Summary 1. The left ventricle is normal in size, wall thickness and systolic function. The ejection fraction is 60-65%. No regional wall motion abnormalities seen. Normal diastolic function. 2. The right ventricle is normal in size and function. An accurate pulmonary artery pressure could not be obtained. 3. Biatrial size is normal. 4. There is no hemodynamically significant valvular disease. 5. The central venous pressure estimation is normal, 3 mmHg. Comparison No prior study available for comparison. Signature Patient Care team information Care Team Personnel Name: Lino Castano MD Position: Reference Physician Member Role: PCP Address: Address: [address] [place] [address] [address] Care Team Related Persons Name: ELVI COWAN Address: [address] [address]
--- OUTSIDE RECORDS SUMMARY | 2023-11-11 14:40 | XMS_ITS | Continuity of Care Document ---
Author Organization [facility] Address [address] [address]- Care Team Providers Care Machine Operators Name Role Phone Lino Castano MD Primary Care Physician [place] [facility] [place] [id number] Date(s): 08/21/23 - 09/20/23 [facility] [address] [address]- Attending Physician: Samir Barnhart Admitting Physician: AdmSamir boateng Referring Physician: Admtr ArMarissa Allergies, Adverse Reactions, Alerts No Known Allergies Medications amiTRIPTYLINE By Mouth, 0 Refills, Maintenance, 05/25/20 11:17:00 EST Start Date: 05/25/20 Status: Ordered Doxycycline 1, tablet, By Mouth, Daily, Maintenance, 05/30/23 10:30:00 EST Start Date: 05/30/23 Status: Ordered metoprolol 25 mg oral tablet, extended release 25 mg, 1, tablet, By Mouth, 2 times a day, # 180 tablet, Refills 3, Tot. Refills 3, Maintenance, 05/30/23 10:41:00 EST, Route to Pharmacy Electronically, [facility]/pharmacy #[id number], Partial fill upon patientrequest if the prescription is for a schedule II op... Start Date: 05/30/23 Status: Ordered Topamax 25 mg oral tablet 2 tablet = 50 mg, By Mouth, Daily, 0 Refills, Maintenance, 05/25/20 11:16:00 EST Start [...] Reference Physician Member Role: PCP Address: Address: [address] [place] [address] [address] [place], [place] [address] Care Team Related Persons Name: ERIKA COWAN Address: [address] [address]
--- OUTSIDE RECORDS SUMMARY | 2023-11-11 14:40 | XMS_ITS | Continuity of Care Document ---
Author Organization [facility] Address [address] [address]- Care Team Providers Care Reinsurance Analyst Name Role Phone Lino Castano MD Primary Care Physician Encounter [facility] R [id number] Date(s): 05/30/23 - 06/06/23 [facility] [address] [address]- Attending Physician: Elvi Garcia MD Admitting Physician: Elvi Garcia MD Referring Physician: Lino Castano MD Allergies, Adverse Reactions, Alerts No Known [...] 05/30/23 10:41:00 EST, Route to Pharmacy Electronically, [facility]/pharmacy #[id number], Partial fill upon patientrequest if the prescription [...] opioid drug. Start Date: 03/27/23 Status: Ordered Vital Signs Most recent to oldest [Reference Range]: 1 Height 163 cm (05/30/23 10:29 AM) Weight 74.2 kg (05/30/23 10:29 AM) Oxygen Saturation [94-100 %] 100 % (05/30/23 10:29 AM) Pulse Rate [55-90 bpm] 80 bpm (05/30/23 10:29 AM) Body Mass Index [18.5-24.99 kg/m2] 27.93 kg/m2 *H* (05/30/23 10:29 AM) Blood Pressure [90-138/55-84 mm Hg] 109/ 61mm Hg (05/30/23 10:29 AM) Mode of Delivery (Oxygen) Room air (05/30/23 10:29 AM) Blood pressure sites Arm, left (05/30/23 10:29 AM) Weight Obtained Via Standing scale (05/30/23 10:29 AM) Social History Social History Type Response Smoking Status Never (less than 100 in lifetime) entered on: 01/06/21 Sex Cardiology Outpatient Note * Jared MARTINEZ, Elvi Cartagena: PERFORM Event Display: Cardiology Note Office Authored Date: [id number] Patient: ??MINA COWAN ? Age:??27 Years?Sex:??Female?:??1995?? Patient Hx Cardiology Shared Clinical Summary #Migraines #Tachycardia?? #Chest pain # Palpitations #Asthma History of Present Illness/Interval History 27-year-old female referred for concern of POTS. She states that she has migraines and was found tohave POTS on orthostatic blood pressures by her neurologist and was placed on propranolol. She has also been experiencing red/purple legs that feel very heavy and with diminished capillary refill. She states that she cannot stand or walk long. She feels like the room is spinning with presyncope. This happens frequently. These sx have been going on for 2 years. 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 She was dx'd with allergy to dust mites and mold. She does not take the med prescribed. She is also experiencing chest tightness throughout the day. She states different from herasthma, lasts several hours a day worse exertion. No additional cardiac sx. She has had significantpresyncope but no bryson syncope. She drinks 6 water bottles per day. She has mild to moderate caffeine use and feels that she compensates well with water. She is unable to exercise due to leg heaviness and presyncope. ?? She stated that BB did not help her. I sent for IESHA which showed POTS. Echo was normal. She is here for follow up.??She was having some dizziness and her propranolol was decreased. She was off ofthe??propranolol and felt poorly . She is willing to try metoprolol.? Physical Exam Vitals & Measurements HR:??80??(Peripheral)?? BP:??109/61?? SpO2:??100%?? HT:??163??cm?? WT:??74.2??kg?? BMI:??27.93?? Weight lb/oz: 163 lb 9 oz General:??In no acute distress HEENT:??Sclerae anicteric, mucous membranes moist Cardiovascular:?Regular rhythm, normal first and second heart sounds.?No murmurs or gallops.?No JVP??Respiratory:?Clear to auscultation all lung nuñez?? Extremities: Warm,??noedema Neuro:??Nonfocal??Psych: Alert and oriented with appropriate affect. Assessment/Plan Orders: Metoprolol, 25 mg, 1, tablet, By Mouth, 2 times a day, # 180 tablet, Refills 3, Tot. Refills 3, Maintenance, 05/30/23 10:41:00 EST, Route to Pharmacy Electronically, [facility]/pharmacy #[id number], Partial fill upon patient request if the prescription is for a schedule II op... # Probable POTS: states BB not really helping, additional sx as above: TILT table positive for POTS.??Refer to [facility] [place]. She may benefit from ivabradine.??For now will try metoprolol.? # Palpitations, chest pain: echo was normal Problem List/Past Medical History Ongoing No qualifying data Procedure/Surgical History No qualifying data available. Home Medications amiTRIPTYLINE, By Mouth Doxycycline, 1 tablet, By Mouth, Daily metoprolol 25 mg oral tablet, extended release, 25 mg= 1 tablet, By Mouth, 2 times a day, 3 refills Topamax 25 mg oral tablet, By Mouth traZODone 50 mg oral tablet, 50 mg= 1 tablet, By Mouth, Daily at bedtime Vitamin B12 Lab Results Cardiology Labs WBC: 6.5 k/mm3 (12/23/22) RBC: 4.3 m/mm3 (12/23/22) Hgb: 12.2 Gm/dL (12/23/22) Hct: 38.9 % (12/23/22) MCV: 90.5 femtoliters (12/23/22) MCH: 28.4 pg (12/23/22) MCHC:??31.4 g/dL??Low (12/23/22) Platelet Count: 279 k/mm3 (12/23/22) RDW-SD: 45.7 femtoliters (12/23/22) Nucleated RBC (Automated): 0 #/100 WBC'S (12/23/22) Abs. Neut: 3.4 k/mm3 (12/23/22) Abs. Lymph: 2.3 k/mm3 (12/23/22) Abs. Bailey: 0.6 k/mm3 (12/23/22) Abs. Eo: 0.1 k/mm3 (12/23/22) Abs. Baso: 0 k/mm3 (12/23/22) Neut %: 52.7 % (12/23/22) Bailey %: 9.8 % (12/23/22) Eos %: 1.8 % (12/23/22) Baso %: 0.6 % (12/23/22) Imm Gran: 0.3 % (12/23/22) Abs. Imm Gran: 0 k/mm3 (12/23/22) Sodium: 138 mmol/L (12/23/22) Potassium: 4.1 mmol/L (12/23/22) Chloride: 106 mmol/L (12/23/22) Bicarbonate Level: 22 mmol/L (12/23/22) Glucose Level: 82 mg/dL (12/23/22) BUN: 13 mg/dL (12/23/22) Creatinine-Blood:??1.1 mg/dL??High (12/23/22) Calcium: 9.3 mg/dL (12/23/22) Protein, Total: 6.6 Gm/dL (12/23/22) Albumin: 4.4 Gm/dL (12/23/22) Alkaline Phosphatase: 71 units/L (12/23/22) AST (SGOT): 22 units/L (12/23/22) ALT (SGPT): 14 units/L (12/23/22) Bilirubin, Total: 0.2 mg/dL (12/23/22) Diagnostic Impression ECG ECG 12-Lead ?? 05:58:08 Ventricular Rate: 82 BPM Atrial Rate: 82 BPM P-R Interval: 126 ms QRS Duration: 82 ms Q-T Interval: 352 ms QTC Calculation(Bazett): 411 ms P Reynolds: 44 degrees R Reynolds: 26 degrees T Reynolds: 19 degrees Normal sinus rhythm Normal ECG No previous ECGs available Confirmed by ELVI GARCIA ([id number]) on 03/27/2023 1:52:55 PM ?? [place]: ELVI GARCIA ?? Signed By: Elvi Garcia MD ?? ECG 12-Lead ?? 05:58:08 Please click on pdf link to open report ?? Signed By: Elvi Garcia MD Echo Echocardiogram - Complete ?? 13:28:29 Summary 1. The left ventricle is normal [...] venous pressure estimation is normal, 3 mmHg. ?? Comparison No prior study available for comparison. ?? Signature ?? Signed By: aJmel Lora MD Note * Marita Fentonssica: PERFORM, SIGN, VERIFY Event Display: Patient Education/Instruction Authored Date: [id number] [facility] *MOmp Hrt Vas Off Clinical Summary Name MINA COWAN Age 27 Years 1995 PCP Lino Castano MD PCP Visit Date 05/30/2023 10:18:00 Additional Instructions: Scheduled Appointments?? Future Appointments ?No Future Appointments Scheduled Follow-Up Instructions ?? Diagnosis Medications: Please continue your medications until treatment is completed or stopped by your provider. Discuss any questions related to medications with your provider. New Medications [id number], [address] [place], [place] [id number], [phone] Metoprolol (metoprolol 25 mg oral tablet, extended release) 1 tab(s) Oral twice a day. Refills: 3. Next Dose: Medications to Continue with No Changes These medications were not printed or sent to your pharmacy amiTRIPTYLINE Oral. Next Dose: Cyanocobalamin (Vitamin B12) Next Dose: Doxycycline 1 tab(s) Oral Daily. Next Dose: Topiramate (Topamax 25 mg oral tablet) Oral. Next Dose: Trazodone (traZODone 50 mg oral tablet) 1 tab(s) Oral Daily at Bedtime. Next Dose: No Longer Take the Following Medications Oxycodone (oxyCODONE 5 mg oral tablet) 1 tab(s) Oral. every 4-6 hours as needed for pain. Propranolol (propranolol 60 mg oral tablet) TAKE 1 TABLET TWICE A DAY. Allergy Info:?? NKA Medications Given This Visit Future Orders ?No future orders Vital Signs Height 163 cm Weight 74.2 kg BMI 27.93 kg/m2 Blood Pressure 109 mm Hg/61 mm Hg Temperature Pulse Rate 80 bpm Respiratory Rate 02 Sat Mode of Delivery 100 %/Room air You can now view a summary of your hospital visit from the comfort of your home through a free online portal called Smava. Smava is a website that allows you to securely view your medical information including discharge summary, medications and follow-up visits. ??You can alsosend a secure electronic message to your doctor???s office to request appointments, renew medications or just ask a question. You can enroll at [email or web address] or register during your next office visit. Disclaimer:?? The information provided is of a general nature and is intended to be used in conjunction with the recommendations and advice of your health care practitioner. ??Every effort has been made to ensure that the information provided is accurate and complete at the time it is provided to you however, as your needs change, or, as new ??information becomes available, different or additional instructions may be required. If you have questions, please consult with your primary care provider or pharmacist, as appropriate. ??This information is not intended to serve as substitution for assessment and evaluation by a qualified health care provider. If you do not have a primary care provider, you may find a [facility] provider by calling [facility] [employer] Link at [phone]. [facility], in keeping with [facility] guidance, no longer requires face masks for staff, patientsor visitors in most situations. Similar to time spent indoors at other locations, there is the chance that you were exposed to respiratory viruses during your time with us (such as flu or COVID-19).? If you develop symptoms concerning for a viral respiratory infection, please seek testing (and treatment if indicated) from your medical provider or home test kit. For information about the plan of care including goals and instructions for your diagnosis, please see the patient education orders section of this document. Patient Education Materials?? The content of this educational material or handout may have been modified, supplemented, or adapted from its original content and format to support your individualized medical care. Patient Care team information Care Team Personnel Name: Lino Castano MD Position: Reference Physician Member Role: PCP Address: Address: [address] [place] [address] [address] [place] [address]- Care Team Related Persons Name: ELVI COWAN Address: home [address] [place] [id number]
--- OUTSIDE RECORDS SUMMARY | 2023-11-11 14:40 | XMS_ITS | Continuity of Care Document ---
Author Organization [facility] Address [address] [address]- Care Team Providers Care Pharmacist In Charge Name Role Phone Lino Castano MD Primary Care Physician [place] [facility] [place] [id number] Date(s): 04/07/23 - 05/07/23 [facility] [address] [address]- Attending Physician: Samir Barnhart Admitting Physician: Samir Barnhart Referring Physician: AdmtrSamir Allergies, Adverse Reactions, Alerts No Known Allergies [...] Reference Physician Member Role: PCP Address: Address: [address] [place] [address] [address] [place] [address]- Care Team Related Persons Name: ERIKA COWAN Address: [place] [address]
--- OUTSIDE RECORDS SUMMARY | 2023-11-11 14:40 | XMS_ITS | Continuity of Care Document ---
Author Organization [facility] Address [address] [address]- Care Team Providers Care Machine Burrer Name Role Phone Lino Castano MD Primary Care Physician Encounter [facility] [place] [id number] Date(s): 08/21/23 - 08/28/23 [place] [address] [address]- Attending Physician: Elvi Garcia MD Admitting Physician: [...] 05/30/23 10:41:00 EST, Route to Pharmacy Electronically, [facility]/pharmacy #[id number], Partial fill upon patientrequest if the prescription [...] oldest [Reference Range]: 1 Height 163 cm (08/21/23 3:43 PM) Weight 76.3 kg (08/21/23 3:43 PM) Oxygen Saturation [94-100 %] 100 % (08/21/23 3:43 PM) Pulse Rate [55-90 bpm] 95 bpm *H* (08/21/23 3:43 PM) Body Mass Index [18.5-24.99 kg/m2] 28.72 kg/m2 *H* (08/21/23 3:43 PM) Blood Pressure [90-138/55-84 mm Hg] 113/ 70mm Hg (08/21/23 3:43 PM) Blood pressure sites Arm, left (08/21/23 3:43 PM) Weight Obtained Via Standing scale (08/21/23 3:43 PM) Social History Social History Type Response Smoking Status Never (less than 100 in lifetime) entered on: 01/06/21 Sex Cardiology Outpatient Note * Jared MARTINEZ, Elvi Cartagena: PERFORM Event Display: Cardiology Note Office Authored Date: Patient: ??MINA COWAN ? Age:??27 Years?Sex:??Female?:??1995?? Patient Hx Cardiology Shared Clinical Summary # POTS #??Migraines #Tachycardia?? #Chest pain # Palpitations #Asthma History of Present Illness/Interval History 27??yo female with POTS on IESHA, no syncope,??who I referred to POTS clinic in [place] but they??are not taking new patients. She has a multitude of complaints as previously outlined. She did not respond to propranolol and I changed to metoprolol. She is here for cardiology f/u.??She states that??her legs are going numb even??when she is sitting. She is wearing??compression socks.?Of note she did have leg discomfort during the IESHA but then resolved.??She has increased OCAMPO, chest pain described as a stabbing daily, not relieved with BB. During the visit her legs B are very heavy and she has radiating pain B from the??hips??down. During this??visit bp is normal. She describes episodes of red, burning, B LE episodes and?? brings in a picture.?? Physical Exam Vitals & Measurements HR:??95??(Peripheral)?? BP:??113/70?? SpO2:??100%?? HT:??163??cm?? WT:??76.3??kg?? BMI:??28.72?? Weight lb/oz: 168 lb 3 oz PT,??dp2+ B Assessment/Plan # POTS:??TILT table positive for POTS. In addition she has B LE sx as above that make me want to consider erythromelalgia (rare) or maybe small fiber neuropathy. Nonetheless, i will refer to [facility] Dr. Simms for an opinion. Will leave on BB for now. Hydration, compression? # Palpitations, chest pain: echo was normal Problem List/Past Medical History Ongoing No qualifying data Procedure/Surgical History No qualifying data available. Home Medications amiTRIPTYLINE, By Mouth Doxycycline, 1 tablet, By Mouth, Daily metoprolol 25 mg oral tablet, extended release, 25 mg= 1 tablet, By Mouth, 2 times a day, 3 refills Topamax 25 mg oral tablet, 50 mg= 2 tablet, By Mouth, Daily traZODone 50 mg oral tablet, 50 mg= [...] (12/23/22) Abs. Lymph: 2.3 k/mm3 (12/23/22) Abs. [place]: 0.6 k/mm3 (12/23/22) Abs. Eo: 0.1 k/mm3 (12/23/22) Abs. Baso: 0 k/mm3 (12/23/22) Neut %: 52.7 % (12/23/22) [place] %: 9.8 % (12/23/22) Eos %: 1.8 [...] 352 ms QTC Calculation(Bazett): 411 ms P [place]: 44 degrees R [place]: 26 degrees T [place]: 19 degrees Normal sinus rhythm Normal ECG No previous ECGs available Confirmed by ELVI GARCIA ([id number]) on 03/27/2023 1:52:55 PM ?? [place]: ELVI GARCIA ?? Signed By: Elvi Garcia [...] for comparison. ?? Signature ?? Signed By: Jamel Lora MD Patient Care team information Care Team Personnel Name: Lino Castano MD Position: Reference Physician Member Role: PCP Address: Address: [address] [place] [address] [address] [place] [address]- Care Team Related Persons Name: ELVI COWAN Address: home [address] [place] [address]
--- OUTSIDE RECORDS SUMMARY | 2023-11-11 14:40 | XMS_ITS | Continuity of Care Document ---
Author Organization [facility] Address [address] [address]- Care Team Providers Care Line Construction Supervisor Name Role Phone Lino Castano MD Primary Care Physician [phone] [facility] Date(s): 03/27/23 - 04/03/23 [facility] [address] [address]- Attending Physician: Elvi Garcia MD Admitting Physician: Elvi Garcia MD Referring Physician: Lucero Mann Allergies, Adverse Reactions, Alerts No Known Allergies [...] 100 in lifetime) entered on: 01/06/21 Sex EKG study * Event Display: ECG 12-Lead Authored Date: [id number] Please click on pdf link to open report * Event Display: ECG 12-Lead Authored Date: [id number] Ventricular Rate: 82 BPM Atrial Rate: 82 BPM P-R Interval: 126 ms QRS Duration: 82 ms Q-T Interval: 352 ms QTC Calculation(Bazett): 411 ms P [place]: 44 degrees R [place]: 26 degrees T [place]: 19 degrees Normal sinus rhythm Normal ECG No previous ECGs available Confirmed by ELVI GARCIA ([id number]) on 03/27/2023 1:52:55 PM [place]: ELVI GARCIA Cardiology Outpatient Note * Elvi Garcia MD: PERFORM Event Display: Cardiology Note Office Authored Date: [id number] Patient: ??MINA COWAN ? Age:??27 Years?Sex:??Female?:??1995?? Patient [...] 2 years. She was sent to an ell teacher who thought it was all POTS. She [...] due to leg heaviness and presyncope. ?? Past medical history: As above as well as left shoulder arthroscopy 2019,??left shoulder manipulation/arthroscopy 2021 Family history:??Asthma, diabetes, hypertension,??no cardiac issues Social history: Social alcohol,??no tobacco,??2 cups of??coffee per day and soda,??no regular exercise.?? 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 Review of Systems 11 point review of systems reviewed per intake form. Physical Exam General:??In no acute distress HEENT:??Sclerae anicteric, mucous membranes moist Cardiovascular:?Regular rhythm, normal first and second heart sounds.?No murmurs or gallops.?No JVP??Respiratory:?Clear to auscultation all lung nuñez?? Extremities: Warm,??noedema Neuro:??Nonfocal??Psych: Alert and oriented with appropriate affect. ?? Orthostatics done on propranolol:?? 111/66?? 70 107/71?? 95 11/?? 81 ?? ECG in the office today shows normal sinus rhythm at 82 bpm normal intervals normal axis. Assessment/Plan Palpitations Ordered: ECG 12 Lead Echo Complete ?? # Probable POTS: states BB not really helping, additional sx as above: TILT table, hold BB am of test. Take after testing.Hydration and caffeine discussed, compression socks. Liberalize Na. f/u aftertesting. ?? # Palpitations, chest pain: echo ?? F/U after testing. Allergies NKA Home Medications amiTRIPTYLINE, By Mouth oxyCODONE 5 mg oral tablet, 5 mg= 1 tablet, By Mouth propranolol 60 mg oral tablet Topamax 25 mg oral tablet, By Mouth [...] (12/23/22) Abs. Lymph: 2.3 k/mm3 (12/23/22) Abs. [place]: 0.6 k/mm3 (12/23/22) Abs. Eo: 0.1 k/mm3 (12/23/22) Abs. Baso: 0 k/mm3 (12/23/22) Neut %: 52.7 % (12/23/22) [place] %: 9.8 % (12/23/22) Eos %: 1.8 [...] units/L (12/23/22) Bilirubin, Total: 0.2 mg/dL (12/23/22) Problem List/Past Medical History Ongoing No qualifying data Procedure/Surgical History No qualifying data available. Social History Alcohol Use: Current. Frequency: 1-2 times per month. Substance Abuse Use: Never. Tobacco Use: Never (less than 100 in lifetime). Family History No family history recorded. Note * Marita Fentonssica: VERIFY, PERFORM, SIGN Event Display: Patient Education/Instruction Authored Date: [id number] [facility] *NHmp Hrt Vas Off Clinical Summary Name MINA COWAN Age 27 Years 1995 PCP Eyad MARTINEZ, Lino PCP Visit Date 03/27/2023 07:46:00 Additional Instructions: Scheduled Appointments?? Future Appointments ?NHmp??Hrt??Vas??Diag ?Phone:??--?Fax:??-- ?Appt. Date:??04/07/2023?1:30 PM ?Scheduled Provider:??Echo Nada Follow-Up Instructions ?? Diagnosis Palpitations Medications: Please continue your medications until treatment is completed or stopped by your provider. Discuss any questions related to medications with your provider. Medications to Continue with No Changes These medications were not printed or sent to your pharmacy amiTRIPTYLINE Oral. Next Dose: Cyanocobalamin (Vitamin B12) Next Dose: Oxycodone (oxyCODONE 5 mg oral tablet) 1 tab(s) Oral. every 4-6 hours as needed for pain. Next Dose: Propranolol (propranolol 60 mg oral tablet) TAKE 1 TABLET TWICE A DAY. Next Dose: Topiramate (Topamax 25 mg oral tablet) Oral. Next Dose: Trazodone (traZODone 50 mg oral tablet) 1 tab(s) Oral Daily at Bedtime. Next Dose: Allergy Info:?? NKA Medications Given This Visit Future Orders ?Echo Complete? Order Date:03/27/23?- Complete by?03/27/23 Vital Signs Height Weight BMI Blood Pressure / Temperature Pulse Rate Respiratory Rate 02 Sat Mode of Delivery / You can now view a summary of your hospital visit from the comfort of your home through a free online portal called [employer]iv. [employer] is a website that allows you to securely view your medical information including discharge summary, medications and follow-up visits. ??You can alsosend a secure electronic message to your doctor???s office to request appointments, renew medications or just ask a question. You can enroll at [email or web address] or register during your next office [...] primary care provider, you may find a [facility] provider by calling [facility] [employer] Link at [phone]. [facility], in keeping with [facility] guidance, no longer requires face masks for [...] Reference Physician Member Role: PCP Address: Address: [address] [place] [address] [address] [place] [address]- Care Team Related Persons Name: ELVI COWAN Address: home [address] [place] [id number]
[2023-11-11 14:50] LABS: MANUAL DIFF FLAG NO
[2023-11-11 14:54] LABS: Basophils Percent Auto 0.3 % (0-2); Eosinophils Percent Auto 0.3 % (0-4); Hematocrit 39.4 % (37.0-47.0); Hemoglobin 12.9 g/dl (12.0-16.0); Imm Gran Abs Auto 0.03 X10*3/uL (0.00-0.03); Imm Gran Pct Auto 0.4 % (0.0-0.4); Lymphocytes Absolute Auto 2.1 X10*3/uL (1.2-4.9); Lymphocytes Percent Auto 30.5 % (20-40); Mean Corpuscular HGB Conc 32.7 g/dl (31.0-35.0); Mean Corpuscular Hemoglobin 29.2 pg (27.0-33.0); Mean Corpuscular Volume 89.1 fL (80.0-98.0); Mean Platelet Volume 9.4 fL (9.4-12.3); Monocytes Absolute Auto 0.5 X10*3/uL (0.1-1.2); Monocytes Percent Auto 7.9 % (2-11); Neutrophils Absolute Auto 4.1 x10*3/uL (2.0-8.3); Neutrophils Percent Auto 60.6 % (45-73); Platelet Count 255 X10*3/uL (160-400); Red Blood Count 4.42 X10*6/uL (4.20-5.50); Red Cell Distribution Width 14.2 % (11.0-16.0); White Blood Count 6.8 X10*3/uL (4.8-10.8)
[2023-11-11 15:17] LABS: Alanine Aminotransferase 18 U/L (0-31); Albumin Level 3.9 g/dL (3.5-5.0); Alkaline Phosphatase 73 U/L (39-117); Anion Gap 13 (12-20); Aspartate Amino Transferase 20 U/L (5-31); Bilirubin Total 0.2 mg/dL (0.0-1.0); Blood Urea Nitrogen 15 mg/dL (9-16); C Reactive Protein 0.12 mg/dL (< or = 0.50); Calcium 8.8 mg/dL (8.4-10.2); Carbon Dioxide 20 mmol/L (22-29); Chloride 111 mmol/L (96-108); Creatinine Clr Calc Pharmacy 95.9; Estimated Glomerular Filt Rate > 60; Glucose Random 87 mg/dL (60-115); HCG Quantitative < 2 mIU/mL; Magnesium 2.1 mg/dL (1.6-2.6); Potassium 3.8 mmol/L (3.3-5.1); Sodium 140 mmol/L (135-145)
[2023-11-11 15:30] LABS: Erythrocyte Sedimentation Rate 6 MM/HR (0-20)
[2023-11-11 15:48] VITALS: BP 121/64; PULSE 99; RESP 18; TEMP 36.6; O2SAT 100
== END 2023-11-11 15:50 | disposition home or self-care (01) ==
PROVIDERS: Physician Assistant Medical; Emergency Provider Student in an Organized Health Care Education/Training Program; PCP Hospitalist
DX: L27.0 Generalized skin eruption due to drugs and medicaments taken internally (principal); T36.4X5A Adverse effect of tetracyclines, initial encounter; Y92.9 Unspecified place or not applicable
CPT/HCPCS: 36415; 80053; 83735; 84702; 85025; 85652; 86140; 99282; 99283

== ENCOUNTER 2023-12-27 08:46 | Emergency (ER) | payer OTHER, SELFPAY ==
[2023-12-27 08:48] VITALS: BP 123/76; PULSE 90; RESP 16; TEMP 36.8; O2SAT 99; BMI 27.8
--- NOTE | 2023-12-27 09:05 | ED.GENADULT ---
HPI - General Adult General Chief complaint: Upper Respiratory Symptoms Stated complaint: Sore throat Time Seen by Provider: 12/27/23 09:05 Source: patient Mode of arrival: ambulatory Limitations: no limitations History of Present Illness ED Provider: Tarun MISTRY HPI narrative: 27-year-old female history of POTS presenting to the emergency department complaints of sore throat, fatigue, malaise, myalgias, difficulty swallowing and eating for the past few days worsening. Patient reports she had something similar to this a few months ago. She states when she had this she tested negative for everything however antibiotics helped. Denies chest pain, shortness of breath, recent illness, nausea, vomiting, abdominal pain, headache, vision changes, dizziness and weakness. Related Data Previous Rx's ?Medication ?Instructions ?Recorded amoxicillin 875 mg-potassium 1 tab PO BID #20 tabs 09/14/23 clavulanate 125 mg tablet prednisone 20 mg tablet 20 mg PO DAILY 7 days #7 tabs 11/11/23 amoxicillin 875 mg-potassium 1 tab PO BID 10 days #20 tabs 12/27/23 clavulanate 125 mg tablet prednisone 20 mg tablet 40 mg (2 x 20 mg) PO DAILY 5 days 12/27/23 #10 tabs Allergies Allergy/AdvReac Type Severity Reaction Status Date / Time sumatriptan [SUMATRIPTAN] Allergy Unknown UNKNOWN Verified 12/27/23 08:50 Review of Systems Review of Systems: Yes all other systems are reviewed and are negative [facility] Past Medical History Attestation statement: The following information was validated with the patient. Source: old records reviewed and nursing notes reviewed Medical History No pertinent past medical history Social History Social History Patient Tobacco Use Status: Never used Tobacco Advance Directives: No Physical Exam ED Vital Signs: Vital Signs - 24 hr 12/27/23 08:48 Temperature 98.3 F Pulse Rate 90 Respiratory Rate 16 Blood Pressure 123/76 Pulse Oximetry 99 Oxygen Delivery Method Room Air BMI result Body Mass Index 27.8 vss Appearance: Alert.? Oriented X3.? No acute distress.? Head: Normocephalic, atraumatic, no step-offs or deformities Eyes: Pupils equal, round and reactive to light.? ENT: Pharynx bilateral edema tonsils, with exudates bilaterally. No visible abscess. Uvula midline. Speaking in full sentences and controlling secretions well..? Neck: Normal inspection.? Neck supple.? CVS: Normal heart rate and rhythm.? Pulses normal.? Respiratory: No respiratory distress.? Breath sounds normal.? Abdomen: Soft and nontender.? Skin: Skin warm and dry.? Normal skin color.? Normal skin turgor.? Extremities: No lower extremity edema.? No calf ttp. 5/5 strength to bilateral upper and lower extremities Neuro: Oriented X 3.? No motor deficit.? No sensory deficit. CN 2-12 intact Course Reevaluation(s) Reevaluation #1: Strep and mono negative. Patient given Decadron with good relief. Will discharge with Augmentin due to high suspicion for strep throat. Will have her follow-up with ENT. Educated patient on diagnosis and treatment plan, answered all question, patient verbalizes understanding. At this time patient will be discharged home, advised to return with new or worsening symptoms. Educated on worrisome signs and symptoms and when to return. At this time I feel comfortable discharge home. Time: 11:32 Medications Administered Discontinued Medications Generic Name Dose Route Start Last Admin Trade Name Freq PRN Reason Stop Dose Admin Dexamethasone Sodium Phosphate 10 mg 12/27/23 09:05 12/27/23 09:19 Dexamethasone Sod Phosphate 10 Mg/Ml Vial IVPUSH 12/27/23 09:06 10 mg ONCE ONE Administration Lidocaine HCl 10 ml 12/27/23 09:05 12/27/23 09:19 Lidocaine Hcl Viscous 2 % 15 Ml Solution MUCOUS MEM 12/27/23 09:06 10 ml ONCE ONE Administration Medical Decision Making Medical Decision Making [facility] Narrative: 0906 27-year-old female history presents with sore throat and white spots on tonsils times a few days. On exam patient does have bilateral edema tonsils, with exudates bilaterally. No visible abscess. Uvula midline. Speaking in full sentences and controlling secretions well. No stridor. History and physical exam concerning for pharyngitis versus mononucleosis. Unlikely peritonsillar abscess, epiglottitis, retropharyngeal abscess, acute threat to airway, respiratory distress. Plan strep test, mono test. Will give Decadron and lidocaine. Differential Diagnosis Differential Diagnoses: The differential diagnosis associated with the presentation includes Admission/Observation Consideration of admission/observation: Escalation of care including admission/observation considered considered but not needed Lab Data MDM Lab Attestation statement: I reviewed the patient's lab results. Labs: Lab Results 12/27/23 12/27/23 Range/Units 08:52 09:13 Monoscreen Negative (Negative) S. pyogenes GrpA MICHELLE Negative (Negative) External Record Review External record reviewed: Office record and Outpatient record Prescription Management I considered prescription management with: Antibiotic Chronic Conditions Patient?s care impacted by: Other (POTS ) Critical Care Time Critical Care Time Critical Care Time: No Discharge Plan Discharge Clinical Impression: Pharyngitis Patient Disposition: Home, Self-Care Instructions: Pharyngitis (ED) Additional Instructions: Take your medications as prescribed. If you were prescribed antibiotics today, it is important that you take your medication to their entirety, do not skip any doses, do not finish them early. Follow-up with your primary care provider this week. Return to the emergency department with new or worsening symptoms. In case of emergency call 911 Please do saltwater gargles 2 to 3 times a day. Prescriptions: New prednisone 20 mg tablet 40 mg PO DAILY 5 Days Qty: 10 0RF amoxicillin-pot clavulanate 875-125 mg tablet 1 tab PO BID 10 Days Qty: 20 0RF No Action amoxicillin-pot clavulanate 875-125 mg tablet 1 tab PO BID Qty: 20 0RF prednisone 20 mg tablet 20 mg PO DAILY 7 Days Qty: 7 0RF Referrals: Jose Steward [Physician] - 1 day Stand Alone Forms: Work/School Release Print Language: Gambian
[2023-12-27 09:07] LABS: IDNOW Serial# 08D9AD1C; Strep A Nucleic Acid Negative (Negative)
[2023-12-27] MEDS: dexAMETHasone sod phosphate 10 MG/ML VIAL IVPUSH (09:19)
[2023-12-27] MEDS: Lidocaine HCl Viscous 2 % 15 ML SOLUTION 10 ML MUCOUS MEM (09:19)
[2023-12-27 11:15] LABS: Monotest Negative (Negative)
[2023-12-27 12:07] VITALS: BP 122/63; PULSE 82; RESP 16; TEMP 36.1; O2SAT 97
== END 2023-12-27 12:08 | disposition home or self-care (01) ==
PROVIDERS: Physician Assistant; Emergency Provider Emergency Medicine Emergency Medical Services; PCP Hospitalist
DX: J02.9 Acute pharyngitis, unspecified (principal); R53.83 Other fatigue
CPT/HCPCS: 36415; 86308; 87651; 99282; 99283; J1100

== ENCOUNTER 2025-01-28 16:04 | Outpatient (AMB) | payer OTHER, SELFPAY ==
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
--- OUTSIDE RECORDS SUMMARY | 2025-01-28 16:43 | XMS_ITS | Clinical Summary ---
Author Organization [facility] [address] [facility] [address] Address [address] [place] [address] Phone Care Team Providers Care Bell Spinner Sousaphones Name Role Phone Lino Castano MD Primary Care Provider [phone] Allergies Active Allergy Reactions Criticality Noted Date Comments Sumatriptan 05/11/2016 Medications METOPROLOL SUCCINATE ORAL Take by mouth. Active amitriptyline (ELAVIL) 50 mg tablet Take 2 tablets (100 mg total) by mouth at bedtime. 06/14/20 22 Active ondansetron (ZOFRAN) 4 mg tablet Take 1 tablet (4 mg total) by mouth every 8 (eight) hours if needed. 05/03/20 22 Active topiramate (TOPAMAX) 100 mg tablet Take 1 tablet (100 mg total) by mouth 1 (one) time each day. 08/25/19 22 Active ZOLMitriptan (ZOMIG) 2.5 mg tablet Take 1 tablet (2.5 mg total) by mouth 1 (one) time each day. Take 1 tablet by mouth at onset of migraines 04/29/20 20 Active albuterol HFA (PROAIR HFA ; PROVENTIL HFA ; VENTOLIN HFA) 90 mcg/actuation inhaler Inhale 1-2 Puffs into the lungs every 4 hours as needed for Wheezing or Shortness of Breath. 03/07/20 19 Active spironolactone (ALDACTONE) 50 mg tablet TAKE 1 TABLET BY MOUTH THREE TIMES A DAY NEEDED. TERATOGENIC, REMAIN ABSTINENT/USE CONTRACEPTION Active ciprofloxacin (CIPRO) 250 mg tablet Take 1 tablet (250 mg total) by mouth 2 (two) times a day. For 3 days. Active amitriptyline HCl (AMITRIPTYLINE ORAL) Take by mouth. 05/25/20 20 Active valACYclovir (VALTREX) 500 mg tablet TAKE 1 TABLET BY MOUTH TWICE A DAY FOR 3 DAYS 6 tablet 2 11/21/19 25 Active traZODone (DESYREL) 50 mg tablet Take 1 tablet (50 mg total) by mouth 1 (one) time each day. 30 each 01/23/20 25 025 Active traZODone (DESYREL) 50 mg tablet Take 1 tablet (50 mg total) by mouth 1 (one) time each day. 02/05/20 24 025 Discontin ued(Reord er) Active Problems Problem Noted Date Diagnosed Date Secondary oligomenorrhea 09/26/2023 Overview (04/17/2024): Last Assessment & Plan: Will obtain labs to evaluate. She will start Micronor following negative UPT today. Vulvar itching 09/26/2023 Overview (04/17/2024): Last Assessment & Plan: Will treat empirically for yeast given history and findings on exam, despite inconclusive microscopy. Herpes simplex vulvovaginitis 09/13/2023 Cyst of ovary 09/14/2020 Overview (04/17/2024): Last Assessment & Plan: Pelvic ultrasound ordered. Discussed functional cysts vs. Pathologic cysts. Will call if there is any concerning finding on ultrasound Diarrhea 09/14/2020 Overview (04/17/2024): Last Assessment & Plan: Recommend follow-up with GI Pelvic pain 09/14/2020 Overview (04/17/2024): Last Assessment & Plan: Referral placed to GI. She was informed that she should hear back in 1-2 weeks with an appointment date. If not, she should call back to our office and inquire on getting this arranged. She voiced understanding and agreed. Urinary incontinence 09/14/2020 Overview (04/17/2024): Last Assessment & Plan: UA negative today Encouraged patient to follow-up with urology referral Constipation 07/13/2017 GERD (gastroesophageal reflux disease) 7 Migraines 02/10/2017 Asthma 09/13/2016 Encounters Date Type Department Care Team Description 12/20/2024 [facility] - [address] [place] [address] Lino Castano MD Rectal Bleeding from Last 3 Months Surgical History Surgery Date Site/Laterality Comments WISDOM TOOTH EXTRACTION PROCEDURE: HISTORICAL WISDOM TEETH EXTRACTION Medical History Medical History Date Comments Asthma 09/13/2016 DX:Asthma Constipation 07/13/2017 DX:Constipation GERD (gastroesophageal reflux disease) 7 DX:GERD (gastroesophageal reflux disease) Migraines 02/10/2017 DX:Migraines HSV-1 infection DX:HSV-1 infecti on; COMMENT: perineal Family History Medical History Relation Name Comments No Known Problems Brother No Known Problems Father Cervical cancer Maternal Grandmother No Known Problems Mother No Known Problems Sister 1 No Known Problems Sister 2 Breast cancer Neg Hx Cancer of Small Bowel Neg Hx Colon cancer Neg Hx Kidney cancer Neg Hx Ovarian cancer Neg Hx Uterine cancer Neg Hx Relation Name Status Comments Brother Alive Father Alive Maternal Grandfather Maternal Grandmother Alive Mother Alive Paternal Grandfather Paternal Grandmother Alive Sister 1 Alive Sister 2 Alive Social History Tobacco Use Types Packs/Day Years Used Date Smoking Tobacco: Never Smokeless Tobacco: Never Tobacco Cessation:Counseling Given: Not Answered Alcohol Use Standard Drinks/Week Comments Yes 3 (1 standard drink = 0.6 oz pur e alcohol) Housing Instability Answer Date Recorde d Are you worried that in the next 2 months you may not have stable housing? Yes 05/24/2024 Food Access & Nutrition Answer Date Rec orded Do you have access to a vari ety of food including fruits and vegetables? Patient declined 05/24/2024 Health Literacy Answer Date Recorded How often do you need to hav e someone help you when you read instructions, pamphlets, or other written material from your doctor or pharmacy? Patient declined 05/24/2024 Caregiver: How often do you need to have someone help you when you read instructions, pamphlets, or other written material from your doctor or pharmacy? Not on file Financial Risk Answer Date Recorded How hard is it for you to pa y for the very basics like food, housing, medical care, and air conditioning / heating? Patient declined 05/24/2024 Transportation Answer Date Recorded Has the lack of transportati on kept you from meetings, work, or from getting things needed for daily living? Patient declined 05/24/2024 Has the lack of transportati on kept you from medical appointments or from getting medications? Patient declined 05/24/2024 Social Isolation Answer Date Recorded How often do you feel lonely or isolated from those around you? Patient declined 05/24/2024 Food Risk Answer Date Recorded Within the past 12 months we worried whether our food would run out before we got money to buy more. Patient declined Within the past 12 months th e food we bought just didn't last and we didn't have money to get more. Patient declined 02/2024 Dependent Care Answer Date Recorded Do you need help finding or paying for care for your loved ones. For example, child psychometrist or elderly care for an older adult? Patient declined 05/24/2024 Education Answer Date Recorded Do you think completing more education or training, like finishing a GED, going to college, or learning a trade, would be helpful for you? Patient declined 05/24/2024 Employment and Income Answer Date Recor ded During the last four weeks, have you been actively looking for work? Patient declined 05/24/2024 Living Situation Answer Date Recorded What is your living situation? 1 07/24/2023 Comments No Sex and Gender Information Value Date Recorded Sex Assigned at Not on file Legal Sex Female 11:31 PM EST Gender Identity Not on file Sexual Orientation Not on file Obstetrics History Para Term AB IAB SAB Ectopic Multiple Livin g Live Births 0 0 0 0 0 0 0 0 0 0 0 Last Filed Vital Signs Vital Sign Reading Time Taken Comments Blood Pressure 118/80 05/28/2024 4:33 PM EST Pulse 106 05/28/2024 4:33 PM EST Temperature 36.5 C (97.7 F) 05/28/2024 4:33 PM EST Respiratory Rate - - Oxygen Saturation 100% 05/28/2024 4:33 PM EST Inhaled Oxygen Concentration - - Weight 72.6 kg (160 lb) 05/28/2024 4:33 PM EST Height 162.6 cm (5' 4 ) 05/28/2024 4:33 PM EST Body Mass Index 27.46 05/28/2024 4:33 PM EST Plan of Treatment Health Maintenance Due Date Last Done Comments Hepatitis B Vaccines (1 of 3 - 19+ 3-dose series) 12/30/2014 Pneumococcal Vaccine: Pediatrics (0 to 5 Years) and At-Risk Patients (6 to 49 Years) (1 of 2 - PCV) 12/30/2014 COVID-19 Vaccine ( - season) 2024 08/25/2021, 12/04/2020, 11/12/2020 Influenza Vaccine (#1) 2025 , 05/19/2019, 04/28/2017 Social Influencers of Health Screening 05/24/2025 05/24/2024 Depression Screening 05/28/2025 05/28/2024 Cervical Cancer Screening: Pap Smear 09/09/2025 09/09/2022, 09/09/2022, 09/09/2022, Additional history exists Cholesterol Screening (Lipid Panel) 07/15/2029 07/15/2024 DTaP,Tdap,and Td Vaccines (2 - Td or Tdap) 07/28/2030 07/28/2020 Hepatitis C Screening Completed 04/06/2021 HIV Screening Completed 02/21/2024, 02/21/2024 Gonorrhea/Chlamydia Screening Discontinued 05/24/2024, 02/21/2024 HIB Vaccines Aged Out No longer eligi ble based on patient's age to complete this topic HPV Vaccines Aged Out No longer eligi ble based on patient's age to complete this topic Hepatitis A Vaccines Aged Out No long er eligible based on patient's age to complete this topic IPV Vaccines Aged Out No longer eligi ble based on patient's age to complete this topic MMR Vaccines Aged Out No longer eligi ble based on patient's age to complete this topic Meningococcal ACWY Vaccine Aged Out N o longer eligible based on patient's age to complete this topic Meningococcal B Vaccine Aged Out No l onger eligible based on patient's age to complete this topic RSV Immunization Patients Under 20 months Aged Out No longer eligible based on patient's age to complete this topic Varicella Vaccines Aged Out No longer eligible based on patient's age to complete this topic Procedures Procedure Name Priority Date/Time Associated Diagnosis Comments LIPID PANEL WITH REFLEX TO DIRECT LDL Routine 07/15/2024 1:39 PM EST Preventative health care POTS (postural orthostatic tachycardia syndrome) Mild intermittent asthma, unspecified whether complicated PCOS (polycystic ovarian syndrome) CHLAMYDIA TRACHOMATIS AND NEISSERIA GONORRHOEAE PCR Routine 05/24/2024 11:16 AM EST Encounter for screening examination for sexually transmitted infection HIV SCREENING Routine 02/21/2024 HPV Routine 09/09/2022 HEPATITIS C SCREENING Routine 04/06/2021 from Last 3 Months or Most Recently Relevant to Health Maintenance Results * (ABNORMAL) Lipid panel with reflex to direct LDL (07/15/2024 1:39 PM EST) Cholesterol 134 0 - 200 mg/dL LAB CHEMISTRY METHOD 07/15/2024 6:37 PM [facility] Triglycerides 148 0 - 150 mg/dL LAB CHEMISTRY METHOD 07/15/2024 6:37 PM [facility] HDL 37(L) >=40 mg/dL LAB CHEMISTRY METHOD 07/15/2024 6:37 PM [facility] LDL Calculated 67 0 - 100 mg/dL LAB CHEMISTRY METHOD 07/15/2024 6:37 PM [facility] VLDL Cholesterol Fausto 29.6 mg/dL LAB CHEMISTRY METHOD 07/15/2024 6:37 PM [facility] Non HDL Chol. (LDL+VLDL) 97 <145 mg/dL LAB CHEMISTRY METHOD 07/15/2024 6:37 PM [facility] Chol/HDL Ratio 3.6 0.0 - 4.4 LAB CHEMISTRY METHOD 07/15/2024 6:37 PM [facility] Blood Venous blood specimen / Unknown Venipuncture / Unknown 07/15/2024 1:39 PM EST 07/15/2024 1:40 PM EST Lino Castano MD LAB BLOOD ORDERABLES Final Resul t [facility] [address] [place] [address], [place] [phone] * Chlamydia trachomatis and Neisseria gonorrhoeae molecular study (05/24/2024 11:16 AM EST) [facility] Neisseria gonorrhoeae PCR Negative Negative LAB MOLECULAR DIAGNOSTICS METHOD 05/25/2024 9:16 AM EST [facility] Chlamydia trachomatis PCR Negative Negative LAB MOLECULAR DIAGNOSTICS METHOD 05/25/2024 9:16 AM EST [facility] Swab Vaginal structure / Unknown Non-blood Collection / Unknown 05/24/2024 11:16 AM EST 05/24/2024 11:17 AM EST Yarely Murray CNM LAB MICROBIOLOGY - GENERAL ORDERABLES Final Result Performing Organization Address City/Va Hospital/ZIP Co de Phone Number [facility] [address] [place] [address], [place] [phone] * HIV Screening (02/21/2024) [facility] HIV Screening abstracted Lorna Alcala MD HEALTH MAINTENANCE Final Result * Cervical Cancer Screening: HPV (09/09/2022) [facility] Cervical Cancer Screening: HPV abstracted; no interpretation us Lorna Alcala MD HEALTH MAINTENANCE Final Result * Hepatitis C Screening (04/06/2021) [facility] Hepatitis C Screening abstracted us Lorna Alcala MD HEALTH MAINTENANCE Final Result from Last 3 Months or Most Recently Relevant to Health Maintenance Insurance [employer] [facility] Care Teams Bell Spinner Sousaphones Relationship Specialty Start Date End Date Lino Castano MD PCP - General Internal Medicine 05/21/18
--- OUTSIDE RECORDS SUMMARY | 2025-01-28 16:43 | XMS_ITS | Clinical Summary ---
Author Organization [address] Address [address] [place] [id number] Care Team Providers Care Back Wedger Name Role Phone Lino Castano MD Primary Care Provider [phone] Family History Medical History Relation Name Comments Asthma Brother Diabetes Father Lung disease Maternal Grandfather Lung cancer Maternal Grandmother No Known Problems Mother No Known Problems Paternal Grandmother No Known Problems Sister 1 No Known Problems Sister 2 Relation Name Status Comments Brother Alive Father Alive Maternal Grandfather Maternal Grandmother Alive Mother Alive Paternal Grandfather Paternal Grandmother Alive Sister 1 Alive Sister 2 Alive Social History Tobacco Use Types Packs/Day Years Used Date Smoking Tobacco: Never Smokeless Tobacco: Never Alcohol Use Standard Drinks/Week Comments Yes 1 (1 standard drink = 0.6 oz pure alcohol) approx 2 times per month, 1 to 2 glasses of wine Comments Unknown Sex and Gender Information Value Date Recorded Sex Assigned at Not on file Legal Sex Female 7:33 AM EDT Gender Identity Not on file Sexual Orientation Not on file Last Filed Vital Signs Vital Sign Reading Time Taken Comments Blood Pressure - - Pulse - - Temperature - - Respiratory Rate - - Oxygen Saturation - - Inhaled Oxygen Concentration - - Weight 67.1 kg (148 lb) 03/24/2022 11:29 AM EDT Height 162.6 cm (5' 4 ) 03/24/2022 11:29 AM EDT Body Mass Index 25.4 03/24/2022 11:29 AM EDT Plan of Treatment Health Maintenance Due Date Last Done Comments HIV screening 12/30/2008 Hepatitis C screening 12/30/2013 Cervical cancer screening 12/30/2016 Covid-19 vaccine series (2023- season) 2024 Influenza vaccine 03/17/2025 Tetanus adult (Td q 10,TDAP once) 07/28/2030 021 RSV Immunization (1 - 1-dose 75+ series) 12/30/2070 Meningococcal Vaccine Aged Out No isaac tatiana eligible based on patient's age to complete this topic Pneumococcal Vaccine (2 - 49 years) Aged Out No longer eligible b ased on patient's age to complete this topic Care Teams Back Wedger Relationship Specialty Start Date End Date Lino Castano MD [address] [place] [id number] PCP - General Internal Medicine 04/13/22
== END 2025-01-28 16:50 | disposition home or self-care (01) ==
LOC: HO.HSM 16:04
PROVIDERS: PCP Internal Medicine; Referring Provider Internal Medicine; Visit Provider Registered Nurse
DX: G43.909 Migraine, unspecified, not intractable, without status migrainosus (principal); G44.209 Tension-type headache, unspecified, not intractable; S13.9XXD Sprain of joints and ligaments of unspecified parts of neck, subsequent encounter; R41.3 Other amnesia
CPT/HCPCS: 99214

== ENCOUNTER 2025-03-26 15:50 | Outpatient (AMB) | payer OTHER, SELFPAY ==
--- OUTSIDE RECORDS SUMMARY | 2022-08-30 17:18 | XMS_ITS | Encounter Summary ---
Author Organization [facility] Address [address] [facility] [address] [place] [address] Phone Care Team Providers Care Scoring Machine Operator Name Role Phone Lino Castano MD Primary Care Provider [phone] Encounter Details Date Type Department Care Team (Late st Contact Info) Description 08/30/2022 4:18 PM EST Hospital Encounter [facility] [address] [place] [phone] Roya Diallo CNP [address] [place] [id number] Social History Tobacco Use Types Packs/Day Years [...] IMPRESSION: Nonobstructive bowel gas pattern. us Roya Diallo FAST FOOD SUPERVISOR IMG XR ABDOMEN Final Resul t documented in this encounter Visit Diagnoses Not on filedocumented in this encounter Care Teams Scoring Machine Operator Relationship Specialty Start Date End Date Lino Castano MD [address] [place] [address] PCP - General Internal Medicine 06/28/19 documented as of this encounter Additional Source Comments The information contained in this document represents components of the legal health record. It is not the complete legal health record.[facility]
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
--- OUTSIDE RECORDS SUMMARY | 2025-03-26 18:32 | XMS_ITS | Clinical Summary ---
Author Organization [facility] Address [address] [place] [phone] Phone Care Team Providers Care Calf Skinner Name Role Phone Lino Castano MD Primary Care Provider [phone] Allergies No known active allergies Medications cyanocobalamin, vitamin B-12, 1000 MCG tablet 1 Active propranoloL (INDERAL) 60 MG immediate release tablet 2 Active topiramate (TOPAMAX) 100 MG tablet 1 Active amitriptyline (ELAVIL) 50 MG tablet TAKE 1 TABLET BY MOUTH EVERYDAY AT BEDTIME 2 Active ibuprofen (ADVIL,MOTRIN) 600 MG tablet Take 1 tablet (600 mg total) by mouth 3 (three) times a day for 3 days. Then tid prn pain/inflammatio n 30 tablet 2 Active hydrOXYzine (ATARAX) 25 MG tablet TAKE 1 TABLET BY MOUTH 2 TIMES DAILY NEEDED FOR ANXIETY FOR UP TO 30 DAYS. 3 Active fluticasone propionate (FLONASE) 50 mcg/actuation nasal spray spray 2 sprays into each nostril every day 3 Active tretinoin (RETIN-A) 0.1 % cream PLEASE SEE ATTACHED FOR DETAILED DIRECTIONS 3 Active traZODone (DESYREL) 50 MG tablet Take 1 tablet by mouth every morning. 3 Active adapalene (DIFFERIN) 0.1 % cream 4 Active doxycycline monohydrate (ADOXA) 100 MG tablet PLEASE SEE ATTACHED FOR DETAILED DIRECTIONS 4 Active ondansetron (ZOFRAN) 4 MG tablet Take 4 mg by mouth every 8 (eight) hours as needed. 4 Active tacrolimus (PROTOPIC) 0.1 % ointment APPLY TWICE A DAY TO RASH ON FACE/NECK NEEDED FOR ITCH, INFLAMMATION 4 Active phenazopyridine (PYRIDIUM) 100 MG tablet Take 2 tablets (200 mg total) by mouth 3 (three) times a day as needed for pain (specific location in comments) (URINARY DISCOMFORT). 12 tablet 4 Active Active Problems No known active problems Immunizations No known immunizations Social History Tobacco Use Types Packs/Day Years [...] Sign Reading Time Taken Comments Blood Pressure 114/81 09/10/2023 4:00 PM EST Pulse 103 09/10/2023 4:00 PM EST Temperature 36.6 C (97.8 F) 09/10/2023 4:00 PM EST Respiratory Rate 25 09/10/2023 4:00 PM EST Oxygen Saturation 100% 09/10/2023 4:0 0 PM EST Inhaled Oxygen Concentration - - Weight 72.6 kg (160 lb) 08/30/2022 4:06 PM EST patient reported Height 162.6 cm (5' 4 ) 08/30/2022 4:06 PM EST Body Mass Index 27.46 08/30/2022 4:06 PM EST Plan of Treatment Health Maintenance Due Date Last Done Comments DEPRESSION SCREENING 2007 HEPATITIS C SCREENING 12/30/2013 HIV ONE-TIME SCREENING (18-6 5 YEARS) 12/30/2013 PAP SMEAR 12/30/2016 INFLUENZA VACCINE (#1) 2025 1, 05/19/2019, 04/28/2017 COVID-19 VACCINE (4 - 5-2 6 season) 2025 08/25/2021, 12/04/2020, 11/12/2020 Adult Td,Tdap Booster 07/28/2030 07/28/2020 SMOKING STATUS SCREENING (On ce After 26 Yrs) Completed 09/10/2023 HEPATITIS A VACCINES Aged Out No long er eligible based on patient's age to complete this topic HIB VACCINES Aged Out No longer eligi ble based on patient's age to complete this topic MENINGOCOCCAL VACCINES (ACWY) Aged Out No longer eligible based on patient's age to complete this topic MENINGOCOCCAL VACCINES (B) Aged Out N o longer eligible based on patient's age to complete this topic PNEUMOCOCCAL VACCINES (0-49 years) Aged Out No longer eligible b ased on patient's age to complete this topic Medical Devices Not on file Insurance [employer] [facility] [employer]MIN[employer] Care Teams Calf Skinner Relationship Specialty Start Date End Date Lino Castano MD [address] [place] [phone] PCP - General Internal Medicine 06/28/19 Additional Source Comments The information contained in this document represents components of the legal health record. It is not the complete legal health record.[facility]
--- OUTSIDE RECORDS SUMMARY | 2025-03-26 18:32 | XMS_ITS | Clinical Summary ---
Author Organization [address] Address [address] [place] [phone] Care Team Providers Care Jewelry Casting Model Maker Apprentice Name Role Phone Lino Castano MD Primary Care Provider [phone] Family History Medical History Relation Name Comments [...] Cervical cancer screening 12/30/2016 Covid-19 vaccine series ( season) 2025 Influenza vaccine 03/17/2025 Tetanus adult (Td q 10,TDAP once) 07/28/2030 021 RSV Immunization (1 - 1-dose 75+ series) 12/30/2070 Meningococcal B Vaccine Aged Out No l onger eligible based on patient's age to complete this topic Meningococcal Vaccine Aged Out No isaac tatiana eligible based on patient's age to complete this topic Pneumococcal Vaccine (2 - 49 years) Aged Out No longer eligible b ased on patient's age to complete this topic Care Teams Jewelry Casting Model Maker Apprentice Relationship Specialty Start Date End Date Lino Castano MD [address] [place] [phone] PCP - General Internal Medicine 04/13/22
--- OUTSIDE RECORDS SUMMARY | 2025-03-26 18:32 | XMS_ITS | Encounter Summary ---
Author Organization [facility] Address [address] [place] [phone] Care Team Providers Care Food Safety Coordinator Name Role Phone Lino Castano MD Primary Care Provider [phone] Encounter Details Date Type Department Care Team ([facility] st Contact Info) Description 04/14/2022 [place] [address] Yin Cano MSW Social History Tobacco Use Types Packs/Day Years Used Date Smoking Tobacco: Never Assessed Comments Unknown Sex and Gender Information Value Date Recorded Sex Assigned at Not on file Legal Sex Female 7:33 AM EDT Gender Identity Not on file Sexual Orientation Not on file documented as of this encounter Progress Notes * Yin Cano MSW - 04/14/2022 5:08 PM EDT Independent Living [facility]ocates Patient Name: Emily Hollingsworth Date of : 1995 Social Work Additional Information Flowsheet Row Most Recent Value Admission Information Document Type Living Donor Level of Care Ambulatory Narrative/Signoff Identified Clinical/Disposition, Issues/Barriers: Emily Hollingsworth is a 26 year old female who is scheduled for an upcoming living donor evaluation Intervention(s)/Summary I had attempted to contact Emily via telephone for the GARRY pre-call procedure. A voicemail was left for Emily, introducing myself and my role as the Independent Living Donor Advocate (GARRY) with my information for Emily to call me at her convenience. Outcome Ongoing Interventions Handoff Required? No Next Steps/Plan (including hand-off): GARRY awaiting call back form Emily. Signature: Yin Cano LMSW - GARRY Contact Information: [phone] documented in this encounter Plan of Treatment Not on file documented as of this encounter Visit Diagnoses Not on filedocumented in this encounter Care Teams Food Safety Coordinator Relationship Specialty Start Date End Date Lino Castano MD [address] [phone] PCP - General Internal Medicine 04/13/22 documented as of this encounter
--- OUTSIDE RECORDS SUMMARY | 2025-03-26 18:32 | XMS_ITS | Encounter Summary ---
Author Organization [facility] Address [address] [place] [phone] Care Team Providers Care Building Certifier Name Role Phone Lino Castano MD Primary Care Provider [phone] Encounter Details Date Type Department Care Team ([facility] st Contact Info) Description 04/20/2022 [place] [address] Yin Cano MSW Social History Tobacco Use [...] Progress Notes * Yin Cano MSW - 04/20/2022 3:18 PM EDT [facility] Patient Name: Emily Hollingsworth Date of : 1995 Social Work Additional Information Flowsheet Row Most Recent Value Admission Information Document Type Living Donor Level of Care Ambulatory Narrative/Signoff Identified Clinical/Disposition, Issues/Barriers: Emily Hollingsworth is a 26 year old female who is scheduled for living donation evaluation. Intervention(s)/Summary I made a second attempt to contact Emily as the Independent Living Donor Advocate (GARRY). A voicemail was left for Emily to contact me at her convenience. Referrals/Resources Provided: Ambulatory not applicable Outcome Ongoing Interventions Next Steps/Plan (including hand-off): GARRY awaiting call back for potential donor. Signature: Yin Cano LMSW - GARRY Contact Information: [phone] documented in this encounter Plan of Treatment Not on file documented as of this encounter Visit Diagnoses Not on filedocumented in this encounter Care Teams Building Certifier Relationship Specialty Start Date End Date Lino Castano MD [address] [place] [phone] PCP - General Internal Medicine 04/13/22 documented as of this encounter
--- OUTSIDE RECORDS SUMMARY | 2025-03-26 18:32 | XMS_ITS | Clinical Summary ---
Author Organization [facility] [address] [facility] Address [address] [place] [address] Phone Care Team Providers Care Time Study Analyst Name Role Phone Lino Castano MD Primary Care Provider [phone] Allergies Active Allergy Reactions Criticality Noted Date Comments Sumatriptan 05/11/2016 Medications METOPROLOL SUCCINATE ORAL Take by mouth. Activ e amitriptyline (ELAVIL) 50 mg tablet Take 2 [...] or Shortness of Breath. 03/07/20 19 Active spironolacton e (ALDACTONE) 50 mg tablet TAKE 1 TABLET BY MOUTH THREE TIMES A DAY NEEDED. TERATOGENIC, REMAIN ABSTINENT/USE CONTRACEPTION Active ciprofloxacin (CIPRO) 250 mg tablet Take 1 tablet (250 mg total) by mouth 2 (two) times a day. For 3 days. Active amitriptyline HCl (AMITRIPTYLIN E ORAL) Take by mouth. 05/25/20 20 Active valACYclovir (VALTREX) 500 mg tablet TAKE 1 TABLET BY MOUTH TWICE A DAY FOR 3 DAYS 6 tablet 2 11/21/19 25 Active traZODone (DESYREL) 50 mg tablet TAKE 1 TABLET BY MOUTH 1 TIME EACH DAY. 30 tablet 03/05/20 25 Active traZODone (DESYREL) 50 mg tablet Take 1 tablet (50 mg total) by mouth 1 (one) time each day. 30 each 01/23/20 25 025 Discontinued Active Problems Problem Noted Date Diagnosed Date [...] reflux disease) 7 Migraines 02/10/2017 Asthma 09/13/2016 Surgical History Surgery Date Site/Laterality Comments WISDOM [...] your doctor or pharmacy? Not on file 024 Financial Risk Answer Date Recorded How hard [...] got money to buy more. Patient declined 024 Within the past 12 months th e food we bought just didn't last and we didn't have money to get more. Patient declined 02/2024 Dependent Care Answer Date Recorded Do you need help finding or paying for care for your loved ones. For example, child care director or elderly care for an older adult? [...] Years) (1 of 2 - PCV) 12/30/2014 Depression Screening 07/17/2024 05/28/2024 COVID-19 Vaccine (4 - 2024- season) 2025 08/25/2021, 12/04/2020, 11/12/2020 Influenza Vaccine (#1) 2025 , 05/19/2019, 04/28/2017 Social Influencers of Health Screening 05/24/2025 05/24/2024 Cervical Cancer Screening: Pap Smear 09/09/2025 09/09/2022, [...] mg/dL LAB CHEMISTRY METHOD 07/15/2024 6:37 PM EST [facility] Triglycerides 148 0 - 150 mg/dL LAB CHEMISTRY METHOD 07/15/2024 6:37 PM EST [facility] HDL 37(L) >=40 mg/dL LAB CHEMISTRY METHOD 07/15/2024 6:37 PM EST [facility] LDL Calculated 67 0 - 100 mg/dL LAB CHEMISTRY METHOD 07/15/2024 6:37 PM EST [facility] VLDL Cholesterol Fausto 29.6 mg/dL LAB CHEMISTRY METHOD 07/15/2024 6:37 PM EST [facility] Non HDL Chol. (LDL+VLDL) 97 <145 mg/dL LAB CHEMISTRY METHOD 07/15/2024 6:37 PM EST [facility] Chol/HDL Ratio 3.6 0.0 - 4.4 LAB CHEMISTRY METHOD 07/15/2024 6:37 PM [facility] Blood Venous blood specimen / Unknown Venipuncture / Unknown 07/15/2024 1:39 PM EST 07/15/2024 1:40 PM EST us Lino Castano MD LAB BLOOD ORDERABLES Final Resul t [facility] [address] [place] [address], * Chlamydia trachomatis and Neisseria gonorrhoeae molecular study (05/24/2024 11:16 AM EST) [facility] Neisseria gonorrhoeae PCR Negative Negative LAB MOLECULAR DIAGNOSTICS METHOD 05/25/2024 9:16 AM EST [facility] Chlamydia trachomatis PCR Negative Negative LAB MOLECULAR DIAGNOSTICS METHOD 05/25/2024 9:16 AM EST [facility] Swab Vaginal structure / Unknown Non-blood Collection / Unknown 05/24/2024 11:16 AM EST 05/24/2024 11:17 AM EST Yarely Murray CNM LAB MICROBIOLOGY - GENERAL ORDERABLES Final Result [facility] [address] [place] [address], * HIV Screening (02/21/2024) [facility] HIV Screening abstracted [facility] Provider HEALTH MAINTENANCE Final Result * Cervical Cancer Screening: HPV (09/09/2022) [facility] Cervical Cancer Screening: HPV abstracted; no interpretation [facility] Provider HEALTH MAINTENANCE Final Result * Hepatitis C Screening (04/06/2021) [facility] Hepatitis C Screening abstracted Historical Provider HEALTH MAINTENANCE Final Result from Last 3 Months or Most Recently Relevant to Health Maintenance Insurance [employer] [facility] Care Teams Time Study Analyst Relationship Specialty Start Date End Date Lino Castano MD PCP - General Internal Medicine 05/21/18
== END 2025-03-26 16:31 | disposition home or self-care (01) ==
LOC: HO.HSM 15:51
PROVIDERS: PCP Internal Medicine; Visit Provider Registered Nurse
DX: G43.909 Migraine, unspecified, not intractable, without status migrainosus (principal); G44.209 Tension-type headache, unspecified, not intractable; S13.9XXD Sprain of joints and ligaments of unspecified parts of neck, subsequent encounter; R41.3 Other amnesia
CPT/HCPCS: 99214

== ENCOUNTER 2025-06-10 14:37 | Outpatient (REF) | payer OTHER, SELFPAY ==
--- OUTSIDE RECORDS SUMMARY | 2022-08-30 16:18 | XMS_ITS | Encounter Summary ---
Author Organization [facility] Address [address] [facility] [address] [place] [phone] Phone Care Team Providers Care Motor Grader Operator Name Role Phone Lino Castano MD Primary Care Provider [phone] Encounter Details Date Type Department Care Team (Late st Contact Info) Description 08/30/2022 4:18 PM EST Hospital Encounter [facility] [address] [place] [id number] Roya Diallo CNP [address] [place] [id number] [email or web address] Social History Tobacco Use Types Packs/Day Years Used Date Smoking Tobacco: Never Smokeless Tobacco: Never Education Answer Date Recorded Are you interested in more education? Not on paige e 11/11/2022 Are you concerned about learning? Not on file 11/11/2022 No 11/11/2022 No 11/11/2022 Digital Access Answer Date Recorded No 12/10/2022 No 12/10/2022 Reliable internet access at home? Not on file 12/10/2022 Device with a working camera? Not on file Comments Unknown Sex and Gender Information Value Date Recorded Sex Assigned at Not on file Legal Sex Female 11:46 AM EST Gender Identity Not on file Sexual Orientation Not on file documented as of this encounter Plan of Treatment Not on file documented as of this encounter Procedures Procedure Name Priority Date/Time Associated Diagnosis Comments XR ABDOMEN 1 VIEW Urgent/patient waiting 08/30/2022 4:27 PM EST Left flank pain documented in this encounter Results * XR ABDOMEN 1 VIEW (08/30/2022 4:27 PM EST) Anatomical Region Laterality Modality Abdomen Computed Radiogr aphy 08/30/2022 4:38 PM EST Impressions 08/30/2022 4:39 PM EST Nonobstructive bowel gas pattern. Narrative 08/30/2022 4:39 PM EST XR ABDOMEN 1 VIEW COMPARISON: None FINDINGS: Tubes/Lines: None Bowel: Normal. No bowel dilatation. Procedure Note Mark Dunn MBBS - 08/30/2022 XR ABDOMEN 1 VIEW COMPARISON: None FINDINGS: Tubes/Lines: None Bowel: Normal. No bowel dilatation. IMPRESSION: Nonobstructive bowel gas pattern. us Roya Dilalo ELECTRIC STOP INSTALLER IMG XR ABDOMEN Final Resul t documented in this encounter Visit Diagnoses Not on filedocumented in this encounter Care Teams Motor Grader Operator Relationship Specialty Start Date End Date Lino Castano MD [address] [place] [address] PCP - General Internal Medicine 06/28/19 documented as of this encounter Additional Source Comments The information contained in this document represents components of the legal health record. It is not the complete legal health record.[facility]
--- OUTSIDE RECORDS SUMMARY | 2025-06-06 08:30 | XMS_ITS | Encounter Summary ---
Author Organization [facility] Address [address] [place] [address] Care Team Providers Care Emergency Telecommunications Dispatcher Name Role Phone Lino Castano MD Primary Care Provider [phone] Reason for Visit * Reason Comments Vaginitis/Bacterial Vaginosis Encounter Details Date Type Department Care Team ([facility] Contact Info) Description 06/06/2025 8:30 AM EST Office Visit Obstetrics & Gynecology - [address] [address] Yarely Murray, [address] [address] Vaginal discharge (Primary Dx); Venereal disease screening; Vaginal irritation; Unprotected sexual intercourse Social History Tobacco Use Types Packs/Day Years Used Date Smoking Tobacco: Never Smokeless Tobacco: Never Alcohol Use Standard Drinks/Week Comments Yes 3 (1 standard drink = 0.6 oz pur e alcohol) Housing Instability Answer Date Recorde d Are you worried that in the next 2 months you may not have stable housing? Patient declined 06/05/2025 Food Access & Nutrition Answer Date Rec orded Do you have access to a vari ety of food including fruits and vegetables? Patient declined 06/05/2025 Health Literacy Answer Date Recorded How often do you need to hav e someone help you when you read instructions, pamphlets, or other written material from your doctor or pharmacy? Patient declined 06/05/2025 Caregiver: How often do you need to have someone help you when you read instructions, pamphlets, or other written material from your doctor or pharmacy? Not on file 025 Financial Risk Answer Date Recorded How hard is it for you to pa y for the very basics like food, housing, medical care, and air conditioning / heating? Patient declined 06/05/2025 Transportation Answer Date Recorded Has the lack of transportati on kept you from meetings, work, or from getting things needed for daily living? Patient declined 06/05/2025 Has the lack of transportati on kept you from medical appointments or from getting medications? Patient declined 06/05/2025 Social Isolation Answer Date Recorded How often do you feel lonely or isolated from those around you? Patient declined 06/05/2025 Food Risk Answer Date Recorded Within the past 12 months we worried whether our food would run out before we got money to buy more. Patient declined 025 Within the past 12 months th e food we bought just didn't last and we didn't have money to get more. Patient declined 05/18 Dependent Care Answer Date Recorded Do you need help finding or paying for care for your loved ones. For example, child and youth program assistant or elderly care for an older adult? Patient declined 06/05/2025 Education Answer Date Recorded Do you think completing more education or training, like finishing a GED, going to college, or learning a trade, would be helpful for you? Patient declined 06/05/2025 Employment and Income Answer Date Recor ded During the last four weeks, have you been actively looking for work? Patient declined 06/05/2025 Living Situation Answer Date Recorded What is your living situation? Unrecognized valu e 06/05/2025 Comments No Sex and Gender Information Value Date Recorded Sex Assigned at Not on file Legal Sex Female 11:31 PM EST Gender Identity Not on file Sexual Orientation Not on file documented as of this encounter Last Filed Vital Signs Vital Sign Reading Time Taken Comments Blood Pressure 106/78 06/06/2025 8:32 AM EST Pulse 102 06/06/2025 8:32 AM EST Temperature - - Respiratory Rate - - Oxygen Saturation - - Inhaled Oxygen Concentration - - Weight 80.1 kg (176 lb 9.6 oz) 06/06/2025 8:32 A M EST Height 165.1 cm (5' 5 ) 06/06/2025 8:32 AM EST Body Mass Index 29.39 06/06/2025 8:32 AM EST documented in this encounter Ordered Prescriptions Prescription Sig Dispense Quantity Refills Last Filled Start Date End Date clotrimazole-betam ethasone (LOTRISONE) 1-0.05 % cream Apply topically 2 (two) times a day if needed (irritation) for up to 14 days. 30 g 06/06/2025 5 documented in this encounter Progress Notes * Neto Waters MA - 06/06/2025 8:30 AM EST Pt here c/o recurring yeast * Yarely Murray CNM - 06/06/2025 8:30 AM EST Encounter Date: 06/06/2025 Chief Complaint Patient presents with Vaginitis/Bacterial Vaginosis Subjective: Emily Hollingsworth is a 29 y.o. who presents for evaluation of a vaginal infection. Main symptom is discharge which is also associated with irritation. Symptoms started 9 months ago. She has tried fluconazole, tinidazole, metronidazole, and boric acid. She denies urinary symptoms, pelvic pain, fevers, chills. She is sexually active with one male partner. She uses condoms inconsistently forcontraception. Agrees to STI testing. Review of Systems: As in HPI. All other systems reviewed and negative. Problem List[1] Medical History[2] Surgical History[3] Family History[4] Social History Socioeconomic History Marital status: Single Spouse name: Not on file Number of children: Not on file Years of education: Not on file Highest education level: Not on file Occupational History Not on file Tobacco Use Smoking status: Never Smokeless tobacco: Never Substance and Sexual Activity Alcohol use: Yes Alcohol/week: 3.0 standard drinks of alcohol Drug use: No Sexual activity: Not on file Other Topics Concern Not on file Social History Narrative 02/11/2020: She lives with her mother, feels safe at home. 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 She plans to go to [employer] for radiology in the Fall. She denies daily exercise. She is in a relationship with male partner of about 2 years, feels safe and denies any IPV. OB History Para Term AB Living 0 0 0 0 0 0 SAB IAB Ectopic Multiple Live Births 0 0 0 0 0 Prior to Admission medications Medication Sig Start Date End Date Taking? Authorizing Provider albuterol HFA (PROAIR HFA ; PROVENTIL HFA ; VENTOLIN HFA) 90 mcg/actuation inhaler Inhale 1-2 Puffsinto the lungs every 4 hours as needed for Wheezing or Shortness of Breath. 03/07/19 Historical Provider, amitriptyline (ELAVIL) 50 mg tablet Take 2 tablets (100 mg total) by mouth at bedtime. 06/14/22 Historical Provider, amitriptyline HCl (AMITRIPTYLINE ORAL) Take by mouth. 05/25/20 Historical Provider, vrbmfwyboz-fxysdvkjzfhpq-mnrmknha (FIORICET, ESGIC) 50-325-40 mg per tablet take 1 tablet by mouth every 8 hours as needed for 30 days 07/24/24 Historical Provider, ciprofloxacin (CIPRO) 250 mg tablet Take 1 tablet (250 mg total) by mouth 2 (two) times a day. For 3 days. Historical Provider, clotrimazole-betamethasone (LOTRISONE) 1-0.05 % cream Apply topically 2 (two) times a day if needed(irritation) for up to 14 days. 06/06/25 06/20/25 Yarely Murray CNM cyanocobalamin (VITAMIN B-12) 1,000 mcg tablet Take 1 tablet (1,000 mcg total) by mouth 1 (one) time each day. 11/21/24 Historical Provider, dapsone (ACZONE) 5 % topical gel APPLY A THIN LAYER TO A CLEAN FACE, TWICE A DAY TO MANAGE ACNE 05/16/25 Historical Provider, divalproex (DEPAKOTE) [address] tablet take 1 tablet by mouth every day at bedtime for 90 days 03/26/25 Historical Provider, METOPROLOL SUCCINATE ORAL Take by mouth. Historical Provider, ondansetron (ZOFRAN) 4 mg tablet Take 1 tablet (4 mg total) by mouth every 8 (eight) hours if needed. 05/03/22 Historical Provider, spironolactone (ALDACTONE) 50 mg tablet TAKE 1 TABLET BY MOUTH THREE TIMES A DAY NEEDED. TERATOGENIC, REMAIN ABSTINENT/USE CONTRACEPTION Historical Provider, topiramate (TOPAMAX) 100 mg tablet Take 1 tablet (100 mg total) by mouth 1 (one) time each day. 08/25/21 Historical Provider, traZODone (DESYREL) 50 mg tablet TAKE 1 TABLET BY MOUTH 1 TIME EACH DAY. 04/07/25 Lino Castano MD valACYclovir (VALTREX) 500 mg tablet TAKE 1 TABLET BY MOUTH TWICE A DAY FOR 3 DAYS 11/20/24 Ana Hutchison CNM ZOLMitriptan (ZOMIG) 2.5 mg tablet Take 1 tablet (2.5 mg total) by mouth 1 (one) time each day. Take 1 tablet by mouth at onset of migraines 04/29/20 Historical Provider, Allergies[5] Objective: Vitals: 06/06/25 0832 BP: 106/78 Pulse: 102 Weight: 80.1 kg (176 lb 9.6 oz) Height: 1.651 m (65 ) Gen: Alert, cooperative. Well-appearing on today's exam NEUROLOGIC: speech fluent, grossly intact PSYCH: Normal affect. LYMPH: No inguinal lymphadenopathy. ABDOMEN: Soft, non-tender, no palpable masses or organomegally. PELVIC: External Genitalia: erythematous, no lesions Urethral meatus: Normal Vagina: Normal appearance. Mucosa is pink. Sm amt white discharge. No lesions. Cervix: Normal in appearance without lesions. Uterus: Small, mobile, anteverted, non-tender. Adnexa: No palpable masses or tenderness ANUS: Normal, no lesions EXT: No edema, tenderness, discoloration Assessment/Plan: 29 y.o. with: 1. Vaginal discharge Wet prep, genital Culture genital 2. Venereal disease screening Chlamydia trachomatis and Neisseria gonorrhoeae molecular study HIV 1,2 antibody, p24 antigen with reflex to differentiation Hepatitis C antibody Treponema pallidum antibody with reflex to RPR and particle agglutination 3. Vaginal irritation Wet prep, genital Culture genital 4. Unprotected sexual intercourse HCG qualitative, urine Orders Placed This Encounter Procedures Wet prep, genital If yeast, please speciate To which resulting agency are you sending this order? (Please ensure this field matches Resulting Agency below): [facility]) [[id number]] Specimen Type:: Swab [102] Chlamydia trachomatis and Neisseria gonorrhoeae molecular study To which resulting agency are you sending this order? (Please ensure this field matches Resulting Agency below): [facility]) [[id number]] Specimen Type:: Swab [102] Specimen Source:: Vagina [21] Culture genital If yeast, please speciate To which resulting agency are you sending this order? (Please ensure this field matches Resulting Agency below): [facility]) [[id number]] Specimen Type:: Swab [102] HIV 1,2 antibody, p24 antigen with reflex to differentiation Standing Status: Future Expiration Date: 06/06/2026 Is this test being used for Screening (absence of signs and/or symptoms) OR Diagnostic (signs/symptoms are present) purposes?: Screen Patient had opportunity to ask questions, and consented to testing, if required by state law?: Yes Release to patient: Immediate [1] Hepatitis C antibody Standing Status: Future Expiration Date: 06/06/2026 Is this test being used for Screening (absence of signs and/or symptoms) OR Diagnostic (signs/symptoms are present) purposes?: Screen Treponema pallidum antibody with reflex to RPR and particle agglutination Standing Status: Future Expiration Date: 06/06/2026 HCG qualitative, urine Standing Status: Future Expiration Date: 06/06/2026 Release to patient: Immediate [1] Reviewed vulvar and vaginal health and hygiene and how to use medication Will tx based on results. Yarely Murray CNM [1] Patient Active Problem List Diagnosis Asthma Constipation Cyst of ovary Diarrhea GERD (gastroesophageal reflux disease) Herpes simplex vulvovaginitis Migraines Pelvic pain Secondary oligomenorrhea Urinary incontinence Vulvar itching Postural orthostatic tachycardia syndrome (POTS) [2] Past Medical History: Diagnosis Date Asthma 09/13/2016 DX:Asthma Constipation 07/13/2017 DX:Constipation GERD (gastroesophageal reflux disease) 07/13/2017 DX:GERD (gastroesophageal reflux disease) HSV-1 infection DX:HSV-1 infection; COMMENT: perineal Migraines 02/10/2017 DX:Migraines [3] Past Surgical History: Procedure Laterality Date WISDOM TOOTH EXTRACTION PROCEDURE: HISTORICAL WISDOM TEETH EXTRACTION [4] Family History Problem Relation Name Age of Onset No Known Problems Mother No Known Problems Father No Known Problems Sister No Known Problems Sister No Known Problems Brother Cervical cancer Maternal Grandmother Breast cancer Neg Hx Ovarian cancer Neg Hx Colon cancer Neg Hx Uterine cancer Neg Hx Kidney cancer Neg Hx Cancer of Small Bowel Neg Hx [5] Allergies Allergen Reactions Sumatriptan documented in this encounter Plan of Treatment Not on file documented as of this encounter Procedures Procedure Name Priority Date/Time Associated Diagnosis Comments TRICHOMONAS VAGINALIS ANTIGEN Routine 06/06/2025 8:51 AM EST Vaginal discharge Vaginal irritation CHLAMYDIA TRACHOMATIS AND NEISSERIA GONORRHOEAE PCR Routine 06/06/2025 8:51 AM EST Venereal disease screening CULTURE GENITAL Routine 06/06/2025 8:51 AM EST Vaginal discharge Vaginal irritation WET PREP, GENITAL Routine 06/06/2025 8:5 1 AM EST Vaginal discharge Vaginal irritation documented in this encounter Results * HCG qualitative, urine (06/06/2025 12:51 PM EST) Preg Test, Ur Negative Negative 06/06/2025 2:22 PM EST [facility] Urine Urine specimen from urethra / Unknown Non-blood Collection / Unknown 06/06/2025 12:51 PM EST 06/06/2025 12:51 PM EST Yarely Murray CNM LAB URINE ORDERABLES Final Result [facility] [address] [place] [address], [place] [phone] * Treponema pallidum antibody with reflex to RPR and particle agglutination (06/06/2025 12:51 PM EST) T. Pallidum Antibodies Negative Negative 06/06/2025 3:06 PM EST [facility] Blood Venous blood specimen / Unknown Venipuncture / Unknown 06/06/2025 12:51 PM EST 06/06/2025 12:51 PM EST [facility] BLOOD ORDERABLES Final Result Performing Organization Address City/[facility]/ZIP Co de Phone Number [facility] [address] [place] [address], [place] [phone] * Hepatitis C antibody (06/06/2025 12:51 PM EST) Hepatitis C Antibody Negative Negative 06/06/2025 3:20 PM EST [facility] Blood Venous blood specimen / Unknown Venipuncture / Unknown 06/06/2025 12:51 PM EST 06/06/2025 12:51 PM EST [facility] BLOOD ORDERABLES Final Result Performing Organization Address [facility] de Phone Number [facility] [address] [place] [address], [place] [phone] * HIV 1,2 antibody, p24 antigen with reflex to differentiation (06/06/2025 12:51 PM EST) [facility] HIV Combo AB/AG Negative Negative 06/06/2025 3:11 PM EST [facility] Blood Venous blood specimen / Unknown Venipuncture / Unknown 06/06/2025 12:51 PM EST 06/06/2025 12:51 PM EST Narrative [facility] - 06/06/2025 3:11 PM EST This assay is a 4th generation assay allowing for earlier detection of HIV infection by detecting the presence of the HIV-1 p24 antigen as well as the traditional antibodies to HIV type 1 (including group O) and type 2. Use of a 4th generation assay is the current CDC recommendation for HIV screening. us [facility] BLOOD ORDERABLES Final Result Performing Organization Address City/[facility]/ZIP Co de Phone Number [facility] [address] [place] [address], * Trichomonas vaginalis antigen (06/06/2025 8:51 AM EST) Trichomonas vaginalis Negative Negative 06/06/2025 1:48 PM EST [facility] Swab Vaginal structure / Unknown Non-blood Collection / Unknown 06/06/2025 8:51 AM EST 06/06/2025 12:19 PM EST us Yarely Murray CNM LAB MICROBIOLOGY - GENERAL ORDERABLES Final Result [facility] [address] [place] [address], * (ABNORMAL) Culture genital (06/06/2025 8:51 AM EST) Pathologist [facility] Culture, Genital Ashleigh albicans/dublini ensis(A) 06/09/2025 11:27 AM EST [facility] Comment: The organism value for this result has been updated. These results have been appended to the previously preliminary verified report. Edited result: Previously reported as Yeast on 06/08/2025 at 1240 EST. Culture, Genital Streptococcus beta-hemolytic Group B(A) 06/09/2025 11:27 AM EST [facility] Comment: Beta Streptococcus Group B Susceptibility testing is not routinely performed since this organism is predictably sensitive to Penicillin. Susceptibility testing should be performed for Penicillin-allergic women at HIGH RISK for anaphylaxis. S erisuld this patient require testing, please contact the Microbiology Department at [phone] within 7 days of receiving this report to request susceptibility. The organism value for this result has been updated. These results have been appended to the previously preliminary verified report. Swab Vaginal structure / Unknown Non-blood Collection / Unknown 06/06/2025 8:51 AM EST 06/06/2025 12:19 PM EST [facility] MICROBIOLOGY - GENERAL ORDERABLES Final Result Performing Organization Address City/[facility]/ZIP Co de Phone Number [facility] [address] [place] [address], [place] [phone] * Chlamydia trachomatis and Neisseria gonorrhoeae molecular study (06/06/2025 8:51 AM EST) Neisseria gonorrhoeae PCR Negative Negative LAB MOLECULAR DIAGNOSTICS METHOD 06/06/2025 3:09 PM EST [facility] Chlamydia trachomatis PCR Negative Negative LAB MOLECULAR DIAGNOSTICS METHOD 06/06/2025 3:09 PM EST [facility] Swab Vaginal structure / Unknown Non-blood Collection / Unknown 06/06/2025 8:51 AM EST 06/06/2025 12:19 PM EST [facility] MICRO[facility]OLOG[facility] - GENERAL ORDERABLES Final Result Performing Organization Address [facility] Co de Phone Number [facility] [address] [place] [address], [place] [phone] * (ABNORMAL) Wet prep, genital (06/06/2025 8:51 AM EST) Clue Cells, Wet Prep Negative Negative 06/06/2025 1:33 PM EST [facility] Yeast, Wet Prep Positive(A) Negative 06/06/2025 1:33 PM EST [facility] Trichomonas, Wet Prep Indeterminate Negative 06/06/2025 1:33 PM EST [facility] Comment:Refer to Trichomonas antigen. Swab Vaginal structure / Unknown Non-blood Collection / Unknown 06/06/2025 8:51 AM EST 06/06/2025 12:19 PM EST [facility] MICROBIOLOGY - GENERAL ORDERABLES Final Result [facility] [address] [place] [address], documented in this encounter Visit Diagnoses Diagnosis Vaginal discharge- Primary Leukorrhea, not specified as infective Venereal disease screening Screening examination for venereal disease Vaginal irritation Pruritus of genital organs Unprotected sexual intercourse Problems related to high-risk sexual behavior documented in this encounter Discontinued Medications Medication Sig Discontinue Reason Start Date End Da te butalbital-acetaminophen -caffeine (FIORICET, ESGIC) 50-325-40 mg per tablet take 1 tablet by mouth every 8 hours as needed for 30 days 07/24/2024 06/06/2025 documented as of this encounter Additional Health Concerns Assessment Noted Time PHQ-9 Depression Total Score: 0 06/05/20 25 6:03 PM EST documented as of this encounter Care Teams Emergency Telecommunications Dispatcher Relationship Specialty Start Date End Date Lino Castano MD PCP - General Internal Medicine 05/21/18 documented as of this encounter
--- OUTSIDE RECORDS SUMMARY | 2025-06-06 12:55 | XMS_ITS | Encounter Summary ---
Author Organization [facility] Address [address] [place] [address] Care Team Providers Care Mayonnaise Mixer Name Role Phone Lino Castano MD Primary Care Provider [phone] Encounter Details Date Type Department Care Team (Late st Contact Info) Description 06/06/2025 12:55 PM EST Lab Draw Station - [address] [facility] [address] [facility] [address] [place] [address] Venereal disease screening; Unprotected sexual intercourse Social History Tobacco Use [...] care for your loved ones. For example, early childhood educator aide or elderly care for an older adult? [...] Procedure Name Priority Date/Time Associated Diagnosis Comments HEPATITIS C ANTIBODY Routine 06/06/2025 12:51 PM EST Venereal disease screening HIV 1, 2 ANTIBODY, P24 ANTIGEN WITH REFLEX TO DIFFERENTIATION Routine 06/06/2025 12:51 PM EST Venereal disease screening TREPONEMA PALLIDUM ANTIBODY WITH REFLEX TO RPR AND PARTICLE AGGLUTINATION Routine 06/06/2025 12:51 PM EST Venereal disease screening HCG QUALITATIVE, URINE Routine 12:51 PM EST Unprotected sexual intercourse documented in this encounter Results * HCG qualitative, urine (06/06/2025 12:51 PM EST) Preg Test, Ur Negative Negative 06/06/2025 2:22 PM EST [facility] Urine Urine specimen from urethra / Unknown Non-blood Collection / Unknown 06/06/2025 12:51 PM EST 06/06/2025 12:51 PM EST [facility] URINE ORDERABLES Final Result [facility] [address] [place] [address], [place] [phone] * Treponema pallidum antibody with reflex to RPR and particle agglutination (06/06/2025 12:51 PM EST) T. Pallidum Antibodies Negative Negative 06/06/2025 3:06 PM EST [facility] Blood Venous blood specimen / Unknown Venipuncture / Unknown 06/06/2025 12:51 PM EST 06/06/2025 12:51 PM EST [facility] BLOOD ORDERABLES Final Result Performing Organization Address [facility]/ZIP Co de Phone Number [facility] [address] [place] [address], [place] [phone] * Hepatitis C antibody (06/06/2025 12:51 PM EST) Hepatitis C Antibody Negative Negative 06/06/2025 3:20 PM EST [facility] Blood Venous blood specimen / Unknown Venipuncture / Unknown 06/06/2025 12:51 PM EST 06/06/2025 12:51 PM EST [facility] BLOOD ORDERABLES Final Result [facility] [address] [place] [address], * HIV 1,2 antibody, p24 antigen with reflex to differentiation (06/06/2025 12:51 PM EST) HIV Combo AB/AG Negative Negative 06/06/2025 3:11 PM EST [facility] Blood Venous blood specimen / Unknown Venipuncture / Unknown 06/06/2025 12:51 PM EST 06/06/2025 12:51 PM EST Narrative [facility] - 06/06/2025 3:11 PM EST This assay is a 4th generation assay allowing for earlier detection of HIV infection by detecting the presence of the HIV-1 p24 antigen as well as the traditional antibodies to HIV type 1 (including group O) and type 2. Use of a 4th generation assay is the current CDC recommendation for HIV screening. Yarely Murray [facility] BLOOD ORDERABLES Final Result [facility] [address] [place] [address], documented in this encounter Visit Diagnoses Diagnosis Venereal disease screening Screening examination for venereal disease Unprotected sexual intercourse Problems related to high-risk sexual behavior documented in this encounter Additional Health Concerns Assessment Noted Time PHQ-9 Depression Total Score: 0 06/05/20 25 6:03 PM EST documented as of this encounter Care Teams Mayonnaise Mixer Relationship Specialty Start Date End Date Lino Castano MD PCP - General Internal Medicine 05/21/18 documented as of this encounter
--- NOTE | ~2025-06-10 | CT_ITS ---
EXAMINATION: CT HEAD WITHOUT IV CONTRAST HISTORY: G43.909 - Migraine, unspecified, not intractable, without status migrainosus.... TECHNIQUE: Unenhanced helical CT of the head was performed per standard departmental protocol. Coronal and sagittal reformats of the head were also evaluated. One or more of the following techniques was used for dose reduction: Automated exposure control, adjustment of the mA and/or kV according to patient size, use of iterative reconstruction technique. DLP: 757 mGy-cm COMPARISON: Comparison is made with the prior examination dated 10/01/2022. FINDINGS: BRAIN: The brain parenchyma is unremarkable. There is normal clark/white differentiation. The ventricular system is normal in size and configuration. There is no mass effect or midline shift. No intra- or extra-axial fluid collections are identified. SINUSES: The visualized paranasal sinuses are clear. The mastoid air cells and middle ear cavities are well pneumatized. ORBITS: The visualized orbits are unremarkable. BONES/SOFT TISSUES: The extracranial soft tissues are unremarkable. The calvarium is intact. No suspicious lytic or sclerotic lesions. CT/CT head/brain wo IV con IMPRESSION: No acute intracranial abnormality. Electronically signed by: Gopal Williamson MD 06/10/2025 03:06 PM [facility]
--- OUTSIDE RECORDS SUMMARY | 2025-06-10 18:28 | XMS_ITS | Encounter Summary ---
Author Organization [facility] Address [address] [place] [id number] Care Team Providers Care Inside Wireman Name Role Phone Lino Castano MD Primary Care Provider [phone] Encounter Details Date Type Department Care Team (Late st Contact Info) Description 03/14/2022 Abstract [facility] [address] [facility] [address] [facility] [address] [place] [address] Hari Smith, PCT Social History Tobacco Use Types Packs/Day Years [...] on filedocumented in this encounter Care Teams Inside Wireman Relationship Specialty Start Date End Date Lino Castano MD [address] [place] [phone] PCP - General Internal Medicine 04/13/22 documented as of this encounter
--- OUTSIDE RECORDS SUMMARY | 2025-06-10 18:28 | XMS_ITS | Encounter Summary ---
Author Organization [facility] Address [address] [place] [address] Care Team Providers Care Ladle Cleaner Name Role Phone Lino Castano MD Primary Care Provider [phone] Encounter Details Date Type Department Care Team (Late st Contact Info) Description 06/06/2025 Results Follow-Up Obstetrics and Gynecology - [address] [phone] Yarely Murray, [facility] [address] [place] [phone] Social History Tobacco Use Types Packs/Day Years [...] for your loved ones. For example, child life specialist or elderly care for an older adult? [...] on file documented as of this encounter Ordered Prescriptions Prescription Sig Dispense Quantity Refills Last Filled Start Date End Date amoxicillin (AMOXIL) 875 mg tablet Take 1 tablet (875 mg total) by mouth every 12 (twelve) hours for 7 days. 14 each 06/10/2025 5 fluconazole (DIFLUCAN) 150 mg tablet Take 1 tablet (150 mg total) by mouth every 3 (three) days for 2 doses. If symptoms not resolved in 3 days, take second dose 2 tablet 06/10/2025 5 documented in this encounter Plan of Treatment Not on file documented as of this encounter Visit Diagnoses Not on filedocumented in this encounter Additional Health Concerns Assessment Noted Time PHQ-9 Depression Total Score: 0 06/05/20 25 6:03 PM EST documented as of this encounter Care Teams Ladle Cleaner Relationship Specialty Start Date End Date Lino Castano MD PCP - General Internal Medicine 05/21/18 documented as of this encounter
--- OUTSIDE RECORDS SUMMARY | 2025-06-10 18:28 | XMS_ITS | Clinical Summary ---
Author Organization [address] Address [address] [place] [address] Care Team Providers Care Coat Cutter Name Role Phone Lino Castano MD Primary Care Provider [phone] Family History Medical History Relation Name Comments [...] C screening 12/30/2013 Cervical cancer screening 12/30/2016 Influenza vaccine 02/14/2025 Covid-19 vaccine series ( season) 2025 Tetanus adult (Td q 10,TDAP once) 07/28/2030 [...] age to complete this topic Care Teams Coat Cutter Relationship Specialty Start Date End Date Lino Castano MD [address] [place] [phone] PCP - General Internal Medicine 04/13/22
--- OUTSIDE RECORDS SUMMARY | 2025-06-10 18:28 | XMS_ITS | Clinical Summary ---
Author Organization [facility] [address] [facility] Address [address] [place] [address] Phone Care Team Providers Care Public Area Supervisor Name Role Phone Lino Castano MD Primary Care Provider [phone] Allergies Active Allergy Reactions Criticality Noted Date [...] (AMITRIPTYLIN E ORAL) Take by mouth. 05/25/20 Active valACYclovir (VALTREX) 500 mg tablet TAKE 1 TABLET BY MOUTH TWICE A DAY FOR 3 DAYS 6 tablet 2 11/21/19 Active traZODone (DESYREL) 50 mg tablet TAKE 1 TABLET BY MOUTH 1 TIME EACH DAY. 90 tablet 1 04/07/20 25 Active cyanocobalami n (VITAMIN B-12) 1,000 mcg tablet Take 1 tablet (1,000 mcg total) by mouth 1 (one) time each day. 11/22/19 Active divalproex (DEPAKOTE) [address] tablet take 1 tablet by mouth every day at bedtime for 90 days 03/26/20 Active dapsone (ACZONE) 5 % topical gel APPLY A THIN LAYER TO A CLEAN FACE, TWICE A DAY TO MANAGE ACNE 05/16/20 Active clotrimazole- betamethasone (LOTRISONE) 1-0.05 % cream Apply topically 2 (two) times a day if needed (irritation) for up to 14 days. 30 g 06/06/20 Active fluconazole (DIFLUCAN) 150 mg tablet Take 1 tablet (150 mg total) by mouth every 3 (three) days for 2 doses. If symptoms not resolved in 3 days, take second dose 2 tablet 06/10/20 Active amoxicillin (AMOXIL) 875 mg tablet Take 1 tablet (875 mg total) by mouth every 12 (twelve) hours for 7 days. 14 each 06/10/20 25 Active butalbital-ac etaminophen-c affeine (FIORICET, ESGIC) 50-325-40 mg per tablet take 1 tablet by mouth every 8 hours as needed for 30 days 07/24/19 25 025 Discontinued Active Problems Problem Noted Date Diagnosed Date Postural orthostatic tachycardia syndrome (POTS) 06/05/2025 Secondary oligomenorrhea 09/26/2023 Overview (04/17/2024): Last Assessment [...] Encounters Date Type Department Care Team Description 06/06/2025 12:55 PM EST Lab Draw Station - [facility] [address] [address] Venereal disease screening; Unprotected sexual intercourse 06/06/2025 8:30 AM EST Office Visit Obstetrics & Gynecology - [address] [phone] Yarely Murray CNM Vaginal discharge (Primary Dx); Venereal disease screening; Vaginal irritation; Unprotected sexual intercourse 06/06/2025 Results Follow-Up Obstetrics and Gynecology [address] [address] Yarely Murray, [place] from Last 3 Months Immunizations Immunization Administration Dates Next Due Influenza Quadravalent, MDCK , 0.5ml, with preservative (Flucelvax) 6mo and older 05/19/2019 Influenza Quadrivalent, 0.5m l, preservative free (Fluarix; FluLaval; Fluzone) ages 6mo and older (Afluria) 3yo and older 04/20/2021,04/28/2017 Tdap Tetanus diptheria acell ular pertussis (Boostrix; Adacel) 7yo and older 07/28/2020 Surgical History Surgery Date Site/Laterality Comments WISDOM TOOTH EXTRACTION PROCEDURE: HISTORICAL WISDOM TEETH EXTRACTION Medical History Medical History Date Comments Asthma 09/13/2016 DX:Asthma Constipation 07/13/2017 DX:Constipation GERD (gastroesophageal reflux disease) DX:GERD (gastroesophageal reflux disease) Migraines 02/10/2017 DX:Migraines [...] for your loved ones. For example, child welfare social worker or elderly care for an older adult? [...] Pulse 102 06/06/2025 8:32 AM EST Temperature 36.5 C (97.7 F) 05/28/2024 4:33 PM EST Respiratory Rate - - Oxygen Saturation 100% 05/28/2024 4:33 PM EST Inhaled Oxygen Concentration - - Weight 80.1 kg (176 lb 9.6 oz) 06/06/2025 8:32 A M EST Height 165.1 cm (5' 5 ) 06/06/2025 8:32 AM EST Body Mass Index 29.39 06/06/2025 8:32 AM EST Plan of Treatment Health Maintenance Due Date Last Done Comments Hepatitis B Vaccines (1 of 3 - 19+ 3-dose series) 12/30/2014 Pneumococcal Vaccine: Pediatrics (0 to 5 Years) and At-Risk Patients (6 to 49 Years) (1 of 2 - PCV) 12/30/2014 HPV Vaccines (1 - 3-dose SCDM series) 12/30/2022 COVID-19 Vaccine (2024- season) 2025 08/25/2021, 12/04/2020, 11/12/2020 Influenza Vaccine (#1) 2025 , 05/19/2019, 04/28/2017 Cervical Cancer Screening: Pap Smear 09/09/2025 09/09/2022, 09/09/2022, 09/09/2022, Additional history exists Social Influencers of Health Screening 06/05/2026 06/05/2025 Cholesterol Screening (Lipid Panel) 07/15/2029 07/15/2024 DTaP,Tdap,and Td Vaccines (2 - Td or Tdap) 07/28/2030 07/28/2020 RSV Immunization Adult Patients (1 - 1-dose 75+ series) 12/30/2070 Depression Screening Completed 06/05/2025 Gonorrhea/Chlamydia Screening Discontinued 06/06/2025, 05/24/2024, 02/21/2024 HIV Screening Completed 06/06/2025, 08/0 01/2024, 02/21/2024 Hepatitis C Screening Completed 06/06/2025, 021 HIB Vaccines Aged Out No longer eligi [...] Procedure Name Priority Date/Time Associated Diagnosis Comments HCG QUALITATIVE, URINE Routine 12:51 PM EST Unprotected sexual intercourse TREPONEMA PALLIDUM ANTIBODY WITH REFLEX TO RPR AND PARTICLE AGGLUTINATION Routine 06/06/2025 12:51 PM EST Venereal disease screening HEPATITIS C ANTIBODY Routine 06/06/2025 12:51 PM EST Venereal disease screening HIV 1, 2 ANTIBODY, P24 ANTIGEN WITH REFLEX TO DIFFERENTIATION Routine 06/06/2025 12:51 PM EST Venereal disease screening TRICHOMONAS VAGINALIS ANTIGEN Routine 06/06/2025 8:51 AM EST Vaginal discharge Vaginal irritation CULTURE GENITAL Routine 06/06/2025 8:51 AM EST Vaginal discharge Vaginal irritation CHLAMYDIA TRACHOMATIS AND NEISSERIA GONORRHOEAE PCR Routine 06/06/2025 8:51 AM EST Venereal disease screening WET PREP, GENITAL Routine 06/06/2025 8:5 1 AM EST Vaginal discharge Vaginal irritation LIPID PANEL WITH REFLEX TO DIRECT LDL Routine 07/15/2024 1:39 PM EST Preventative health care POTS (postural orthostatic tachycardia syndrome) Mild intermittent asthma, unspecified whether complicated PCOS (polycystic ovarian syndrome) HM HPV Routine 09/09/2022 from Last 3 Months or Most Recently Relevant to Health Maintenance Results * Hepatitis C antibody (06/06/2025 12:51 PM EST) Hepatitis C Antibody Negative Negative 06/06/2025 3:[address] [facility] Blood Venous blood specimen / Unknown Venipuncture / Unknown 06/06/2025 12:51 PM EST 06/06/2025 12:51 PM EST [facility] BLOOD ORDERABLES Final Result Performing Organization Address City/[facility]/ZIP Co de Phone Number [facility] [address] [place] [address], [place] [phone] * HIV 1,2 antibody, p24 antigen with reflex to differentiation (06/06/2025 12:51 PM EST) Pathologist [facility] [place] HIV Combo AB/AG Negative Negative 06/06/2025 3:[address] [facility] Blood Venous blood specimen / Unknown Venipuncture / Unknown 06/06/2025 12:51 PM EST 06/06/2025 12:[address] [facility] - 06/06/2025 3:11 PM EST This assay is a 4th generation assay allowing for earlier detection of HIV infection by detecting the presence of the HIV-1 p24 antigen as well as the traditional antibodies to HIV type 1 (including group O) and type 2. Use of a 4th generation assay is the current CDC recommendation for HIV screening. us [facility] BLOOD ORDERABLES Final Result Performing Organization Address City/[facility]/ZIP Co de Phone Number [facility] [address] [place] [address], [place] [phone] * Treponema pallidum antibody with reflex to RPR and particle agglutination (06/06/2025 12:51 PM EST) Pathologist [facility] [place] T. Pallidum Antibodies Negative Negative 06/06/2025 3:[address] [facility] Blood Venous blood specimen / Unknown Venipuncture / Unknown 06/06/2025 12:51 PM EST 06/06/2025 12:51 PM EST us Yarely Murray [facility] LAB BLOOD ORDERABLES Final Result Performing Organization Address [facility]/ZIP Co de Phone Number [facility] [address] [place] [address], [place] [phone] * HCG qualitative, urine (06/06/2025 12:51 PM EST) Pathologist [facility] [place] Preg Test, Ur Negative Negative 06/06/2025 2:[address] [facility] Urine Urine specimen from urethra / Unknown Non-blood Collection / Unknown 06/06/2025 12:51 PM EST 06/06/2025 12:51 PM EST us [facility] URINE ORDERABLES Final Result Performing Organization Address [facility]/ZIP Co de Phone Number [facility] [address] [place] [address], [place] [phone] * Trichomonas vaginalis antigen (06/06/2025 8:51 AM EST) [facility] Trichomonas vaginalis Negative Negative 06/06/2025 1:[address] [facility] Swab Vaginal structure / Unknown Non-blood Collection / Unknown 06/06/2025 8:51 AM EST 06/06/2025 12:19 PM EST [facility] MICROBIOLOGY - GENERAL ORDERABLES Final Result Performing Organization Address City/[facility]/ZIP Co de Phone Number [facility] [address] [place] [address], [place] [phone] * Chlamydia trachomatis and Neisseria gonorrhoeae molecular study (06/06/2025 8:51 AM EST) [facility] Neisseria gonorrhoeae PCR Negative Negative LAB MOLECULAR DIAGNOSTICS METHOD 06/06/2025 3:[address] [facility] Chlamydia trachomatis PCR Negative Negative LAB MOLECULAR DIAGNOSTICS METHOD 06/06/2025 3:[address] [facility] Swab Vaginal structure / Unknown Non-blood Collection / Unknown 06/06/2025 8:51 AM EST 06/06/2025 12:19 PM EST us Yarely Murray [facility] LAB MICROBIOLOGY - GENERAL ORDERABLES Final Result Performing Organization Address City/[facility]/ZIP Co de Phone Number [facility] [address] [place] [address], * (ABNORMAL) Culture genital (06/06/2025 8:51 AM EST) Culture, Genital Ashleigh albicans/dublini ensis(A) 06/09/2025 11:[address] [facility] Comment: The organism value for this result has been updated. These results have been appended to the previously preliminary verified report. Edited result: Previously reported as Yeast on 06/08/2025 at 1240 EST. Culture, Genital Streptococcus beta-hemolytic Group B(A) 06/09/2025 11:[address] [facility] Comment: Beta Streptococcus Group B Susceptibility testing is not routinely performed since this organism is predictably sensitive to Penicillin. Susceptibility testing should be performed for Penicillin-allergic women at HIGH RISK for anaphylaxis. Mary romero this patient require testing, please contact the Microbiology Department at [phone] within 7 days of receiving this report to request susceptibility. The organism value for this result has been updated. These results have been appended to the previously preliminary verified report. Swab Vaginal structure / Unknown Non-blood Collection / Unknown 06/06/2025 8:51 AM EST 06/06/2025 12:19 PM EST us Yarely ARANGO LAB MICROBIOLOGY - GENERAL ORDERABLES Final Result Performing Organization Address City/[facility]/ZIP Co de Phone Number [facility] [address] [place] [address], [place] [phone] * (ABNORMAL) Wet prep, genital (06/06/2025 8:51 AM EST) [facility] Clue Cells, Wet Prep Negative Negative 06/06/2025 1:[address] [facility] Yeast, Wet Prep Positive(A) Negative 06/06/2025 1:[address] [facility] Trichomonas, Wet Prep Indeterminate Negative 06/06/2025 1:[address] [facility] Comment:Refer to Trichomonas antigen. Swab Vaginal structure / Unknown Non-blood Collection / Unknown 06/06/2025 8:51 AM EST 06/06/2025 12:19 PM EST Yarely Murray [facility] LAB MICROBIOLOGY - GENERAL ORDERABLES Final Result [facility] [address] [place] [address], [place] [phone] * (ABNORMAL) Lipid panel with reflex to direct LDL (07/15/2024 1:39 PM EST) [facility] Cholesterol 134 0 - 200 mg/dL LAB CHEMISTRY METHOD 07/15/2024 6:37 PM [facility] Triglycerides 148 0 - 150 mg/dL LAB CHEMISTRY METHOD 07/15/2024 6:37 PM [facility] HDL 37(L) >=40 mg/dL LAB CHEMISTRY METHOD 07/15/2024 6:37 PM [facility] LDL Calculated 67 0 - 100 mg/dL LAB CHEMISTRY METHOD 07/15/2024 6:37 PM [facility] VLDL Cholesterol Fausto 29.6 mg/dL LAB CHEMISTRY METHOD 07/15/2024 6:37 PM [facility] Non HDL Chol. (LDL+VLDL) 97 <145 mg/dL LAB CHEMISTRY METHOD 07/15/2024 6:[address] [facility] Chol/HDL Ratio 3.6 0.0 - 4.4 LAB CHEMISTRY METHOD 07/15/2024 6:[address] [facility] Blood Venous blood specimen / Unknown Venipuncture / Unknown 07/15/2024 1:39 PM EST 07/15/2024 1:40 PM EST Lino Castano MD LAB BLOOD ORDERABLES Final Resul t [facility] [address] [place] [address], * Cervical Cancer Screening: HPV (09/09/2022) Pathologist [facility] Cervical Cancer Screening: HPV abstracted; no interpretation Historical Provider HEALTH MAINTENANCE Final Result from Last 3 Months or Most Recently Relevant to Health Maintenance Insurance [facility] [address] [place] [address] Care Teams Public Area Supervisor Relationship Specialty Start Date End Date Lino Castano MD PCP - General Internal Medicine 05/21/18
--- OUTSIDE RECORDS SUMMARY | 2025-06-10 18:28 | XMS_ITS | Clinical Summary ---
Author Organization Located Within [facility] Address [address] [place] [phone] Phone Care Team Providers Care Pbx Wire Chief Name Role Phone Lino Castano MD Primary Care Provider Allergies No known active allergies Medications cyanocobalamin, [...] topic Medical Devices Not on file Insurance [employer] B[employer] [facility] BENEFITS ADMINISTRATORS Care Teams Pbx Wire Chief Relationship Specialty Start Date End Date Lino Castano MD [address] [place] [address] PCP - General Internal Medicine 06/28/19 Additional Source Comments The information contained in this document represents components of the legal health record. It is not the complete legal health record.Located [facility]
--- OUTSIDE RECORDS SUMMARY | 2025-06-10 18:28 | XMS_ITS | Encounter Summary ---
Author Organization [facility] Address [address] [place] [phone] Care Team Providers Care Crawler Tractor Operator Name Role Phone Lino Castano MD Primary Care Provider Encounter Details Date Type Department Care Team (Late st Contact Info) Description 04/19/2022 Scanned Document [facility] [address] [facility] [address] [facility] 4th [place] [address] Hari Smith, PCT Social History Tobacco Use [...] on filedocumented in this encounter Care Teams Crawler Tractor Operator Relationship Specialty Start Date End Date Lino Castano MD [address] [place] [phone] PCP - General Internal Medicine 04/13/22 documented as of this encounter
--- OUTSIDE RECORDS SUMMARY | 2025-06-10 18:28 | XMS_ITS | Encounter Summary ---
Author Organization [facility] Address [address] [place] [phone] Care Team Providers Care As400 Administrator Name Role Phone Lino Castano MD Primary Care Provider [phone] Encounter Details Date Type Department Care Team ([facility] st Contact Info) Description 04/14/2022 [place] [address] Yin Cano MSW Social History Tobacco Use [...] Yin Cano LMSW - [place] Contact Information: [phone] documented in this encounter Plan of Treatment Not on file documented as of this encounter Visit Diagnoses Not on filedocumented in this encounter Care Teams As400 Administrator Relationship Specialty Start Date End Date Lino Castano MD [address] [address] PCP - General Internal Medicine 04/13/22 documented as of this encounter
--- OUTSIDE RECORDS SUMMARY | 2025-06-10 18:28 | XMS_ITS | Encounter Summary ---
Author Organization [facility] Address [address] [place] [phone] Care Team Providers Care Development Scientist Name Role Phone Lino Castano MD Primary Care Provider [phone] Encounter Details Date Type Department Care Team ([facility] st Contact Info) Description 04/20/2022 [place] [address] Yin Cano MSW Social History Tobacco Use [...] Yin Cano LMSW - [place] Contact Information: [phone] documented in this encounter Plan of Treatment Not on file documented as of this encounter Visit Diagnoses Not on filedocumented in this encounter Care Teams Development Scientist Relationship Specialty Start Date End Date Lino Castano MD [address] [place] [phone] PCP - General Internal Medicine 04/13/22 documented as of this encounter
== END 2025-06-10 14:38 | disposition home or self-care (01) ==
LOC: HO.CT 14:37
PROVIDERS: PCP Internal Medicine; Visit Provider Registered Nurse
DX: R41.3 Other amnesia (principal); G43.909 Migraine, unspecified, not intractable, without status migrainosus
CPT/HCPCS: 70450

== ENCOUNTER → 2025-06-10 14:40 | Outpatient (BNV) | payer OTHER, SELFPAY | PROVIDERS: PCP Internal Medicine; Visit Provider Radiology Diagnostic Radiology | DX: G43.909 Migraine, unspecified, not intractable, without status migrainosus (principal) | CPT/HCPCS: 70450 ==